=== PATIENT | female | born 1930 | race Caucasian/White ===

== ENCOUNTER 2016-08-12 18:32 | Emergency (ER) | payer OTHER, MEDICARE ==
[~2016-08-12] VITALS: Ht 142.2 cm; Wt 74.4 kg
[~2016-08-12 18:32] MED LIST: ASA81 PO; AZU500 PO; DIAZ2TAB3 PO; FOLI-43 PO; FURO-150 PO; METH2.5T PO; PRED5TAB PO; THYROXIN PO; VALS1TAB72 PO
[2016-08-12 18:46] VITALS: BP_SYST 145
[2016-08-12 19:47] LABS: BASOPHILS % (AUTO) 0.3 % (0.0-2.0); EOSINOPHILS % (AUTO) 0.1 % (0.0-4.0); HEMATOCRIT 30.9 % (36-48); HEMOGLOBIN 9.9 g/dL (12.0-16.0); LYMPHOCYTES # (AUTO) 0.7 K/uL (1.0-5.5); LYMPHOCYTES % (AUTO) 6.5 % (20.5-51.5); MEAN CORPUSCULAR HEMOGLOBIN 32 pg (27-31); MEAN CORPUSCULAR HGB CONC 32 % (32-36); MEAN CORPUSCULAR VOLUME 100 fL (79.0-98.0); MONOCYTES # (AUTO) 0.5 K/uL (0.0-1.0); MONOCYTES % (AUTO) 5.3 % (1.7-9.3); NEUTROPHILS # (AUTO) 9.2 K/uL (1.8-7.7); NEUTROPHILS % (AUTO) 87.8 % (40.0-70.0); PLATELET COUNT (AUTO) 314 K/uL (130-430); RED BLOOD CELL COUNT(AUTO) 3.07 MIL/uL (4.2-6.2); RED CELL DISTRIBUTION WIDTH 13.1 % (9.0-15.0); WHITE BLOOD COUNT (AUTO) 10.4 K/uL (4.8-10.8)
[2016-08-12 19:51] LABS: ANION GAP 6 (5-15); CALCIUM 9.5 mg/dL (8.4-11.0); CHLORIDE 96 mmol/L (98-107); GLUCOSE 106 mg/dL (70-99); POTASSIUM 4.5 mmol/L (3.5-5.1); SODIUM SERUM 128 mmol/L (136-145); UREA NITROGEN, BLOOD 19 mg/dL (8-21)
[2016-08-12 19:53] LABS: INR 0.9 (0.8-1.2); PROTHROMBIN TIME 10.3 SECS (9.5-12.5)
[2016-08-12 19:56] LABS: ALANINE AMINOTRANSFERASE 19 U/L (12-78); ALBUMIN 3.7 g/dL (3.4-4.8); ASPARTATE AMINOTRANSFERASE 23 U/L (10-37); TOTAL BILIRUBIN 0.6 mg/dL (0.0-1.0); TOTAL PROTEIN, SERUM 7.1 g/dL (6.4-8.3)
[2016-08-12] MEDS ORDERED: ASPIRIN 81 MG TAB.CHEW PO ONE (20:00)
[2016-08-12] MEDS ORDERED: LIDOCAINE VISCOUS 2%, 15 ML UDC MM ONE (20:45)
[2016-08-12] MEDS ORDERED: PANTOPRAZOLE SODIUM 40 MG/VIAL (PROTONIX) IVP ONE (20:45)
[2016-08-12] MEDS ORDERED: NACL 0.9% 1,000 ML IV ONE (20:45)
[2016-08-12] MEDS ORDERED: BELLADONNA ALKALOIDS/PHENOBARB 5 ML UDC PO ONE (20:45)
[2016-08-12] MEDS ORDERED: MAG-AL HYDROX/SIMETH 30 ML UDC PO ONE (20:45)
[2016-08-12 20:49] LABS: BILIRUBIN,URINE NEGATIVE (NEGATIVE); BLOOD, URINE NEGATIVE (NEGATIVE); CLARITY/URINE CLEAR (CLEAR); COLOR,URINE YELLOW (YELLOW); GLUCOSE,URINE NEGATIVE (NEGATIVE); KETONES,URINE NEGATIVE (NEGATIVE); NITRITE, URINE NEGATIVE (NEGATIVE); PH,URINE 5.5 (5.0-8.0); PROTEIN URINE NEGATIVE (NEGATIVE); UROBILINOGEN,URINE 0.2 (0.2-1.0)
[2016-08-12 21:02] LABS: LEUKOCYTE ESTERASE ,URINE TRACE (NEGATIVE)
[2016-08-12 21:05] LABS: BACTERIA,URINE FEW /HPF (None Seen); MUCUS,URINE None Seen /LPF (None Seen); RBC,URINE NONE SEEN /HPF (0-3)
[2016-08-12] MEDS ORDERED: PANTOPRAZOLE SODIUM 40 MG/VIAL (PROTONIX) ONE (21:12)
[2016-08-12] MEDS ORDERED: CLIN-77 PO (21:19)
[2016-08-12] MEDS ORDERED: FOLI0.8C PO (21:21)
[2016-08-12] MEDS ORDERED: DIAZ5TAB4 PO (21:22)
[2016-08-12] MEDS ORDERED: RANI150T8 PO (21:30)
[2016-08-12] MEDS ORDERED: ASCO500T20 PO (21:30)
[2016-08-12] MEDS ORDERED: LEVOFLOXACIN 500 MG/D5W 100 ML IV ONE (21:30)
[2016-08-12] MEDS ORDERED: OMEG1CAP48 PO (21:33)
[2016-08-12] MEDS ORDERED: THYROXINE PO (22:04)
[2016-08-12] MEDS ORDERED: IRON-11 PO (22:15)
[2016-08-12 22:21] VITALS: BP_SYST 134
== END 2016-08-12 22:21 | disposition home or self-care (01) ==
LOC: SED 18:32
DX: K29.70 Gastritis, unspecified, without bleeding (principal); D64.9 Anemia, unspecified; N39.0 Urinary tract infection, site not specified; R03.0 Elevated blood-pressure reading, without diagnosis of hypertension; E87.1 Hypo-osmolality and hyponatremia; Z88.5 Allergy status to narcotic agent; M06.9 Rheumatoid arthritis, unspecified; Z96.643 Presence of artificial hip joint, bilateral; Z96.612 Presence of left artificial shoulder joint; Z96.611 Presence of right artificial shoulder joint; Z79.899 Other long term (current) drug therapy
CPT/HCPCS: 36415; 71010; 80053; 81000; 83605; 84484; 85025; 85610; 85730; 87040; 93005; 96361; 96365; 96375; 99285; C9113; J1956; J2001; J7030

== ENCOUNTER 2017-03-07 06:57 | Day surgery (SDC) | payer OTHER, MEDICARE ==
[~2017-03-07 06:57] MED LIST changes: +ASCO500T20 PO; -AZU500 PO; +CLIN-77 PO; -DIAZ2TAB3 PO; +DIAZ5TAB4 PO; -FOLI-43 PO; +FOLI0.8C PO; +IRON-11 PO; +OMEG1CAP48 PO; +RANI150T8 PO; -THYROXIN PO; +THYROXINE PO
[2017-03-07] MEDS: MIDAZOLAM HCL 5 MG/5 ML VIAL ONE ×2 (08:47→08:53)
[2017-03-07] MEDS: fentaNYL CITRATE/PF 100 MCG/2 ML AMP ONE ×3 (08:49→08:58)
[2017-03-07 13:47] VITALS: BP_SYST 155
== END 2017-03-07 10:05 | disposition home or self-care (01) ==
LOC: SDS 06:57 → SMU 07:24 → SDS 10:05
PROVIDERS: ATTEND Internal Medicine
DX: Z09 Encounter for follow-up examination after completed treatment for conditions other than malignant neoplasm (principal); K57.30 Diverticulosis of large intestine without perforation or abscess without bleeding; K64.8 Other hemorrhoids; Z86.010 Personal history of colon polyps; I10 Essential (primary) hypertension; E07.9 Disorder of thyroid, unspecified; K21.9 Gastro-esophageal reflux disease without esophagitis; Z79.1 Long term (current) use of non-steroidal anti-inflammatories (NSAID); Z79.899 Other long term (current) drug therapy; Z90.710 Acquired absence of both cervix and uterus; Z90.49 Acquired absence of other specified parts of digestive tract; Z96.659 Presence of unspecified artificial knee joint; Z96.649 Presence of unspecified artificial hip joint; Z88.5 Allergy status to narcotic agent; Z87.891 Personal history of nicotine dependence
CPT/HCPCS: 45378; J2250; J3010; J7030

== ENCOUNTER 2017-07-19 20:34 | Inpatient (IN) | payer OTHER, MEDICARE ==
[~2017-07-19] VITALS: Ht 142.2 cm; Wt 69.9 kg
[2017-07-19 20:34] VITALS: BP_SYST 138
[2017-07-19] MEDS ORDERED: MAGNESIUM SULFATE 50 ML IV ONE (20:45)
[2017-07-19] MEDS ORDERED: IPRATROPIUM/ALBUTEROL SULFATE 3 ML AMPUL.NEB INH ONE (20:45)
[2017-07-19 21:53] LABS: ANION GAP 6 (5-15); CHLORIDE 98 mmol/L (98-107); POTASSIUM 4.7 mmol/L (3.5-5.1); SODIUM SERUM 132 mmol/L (136-145)
[2017-07-19 21:54] LABS: ALANINE AMINOTRANSFERASE 24 U/L (12-78); ASPARTATE AMINOTRANSFERASE 48 U/L (10-37); CALCIUM 9.3 mg/dL (8.4-11.0); CREATININE 1.34 mg/dL (0.55-1.30); GLUCOSE 113 mg/dL (70-99); TOTAL BILIRUBIN 0.5 mg/dL (0.0-1.0); UREA NITROGEN, BLOOD 37 mg/dL (8-21)
[2017-07-19 21:55] LABS: ALBUMIN 3.5 g/dL (3.4-4.8)
[2017-07-19 22:00] LABS: BASOPHILS % (AUTO) 0.1 % (0.0-2.0); HEMATOCRIT 30.8 % (36-48); HEMOGLOBIN 10.3 g/dL (12.0-16.0); LYMPHOCYTES # (AUTO) 1.1 K/uL (1.0-5.5); LYMPHOCYTES % (AUTO) 10.8 % (20.5-51.5); MEAN CORPUSCULAR HEMOGLOBIN 33 pg (27-31); MEAN CORPUSCULAR HGB CONC 33 % (32-36); MEAN CORPUSCULAR VOLUME 99 fL (79.0-98.0); MONOCYTES # (AUTO) 0.8 K/uL (0.0-1.0); MONOCYTES % (AUTO) 8.6 % (1.7-9.3); NEUTROPHILS # (AUTO) 7.9 K/uL (1.8-7.7); NEUTROPHILS % (AUTO) 80.5 % (40.0-70.0); PLATELET COUNT (AUTO) 241 K/uL (130-430); RED BLOOD CELL COUNT(AUTO) 3.12 MIL/uL (4.2-6.2); RED CELL DISTRIBUTION WIDTH 14.9 % (9.0-15.0); WHITE BLOOD COUNT (AUTO) 9.8 K/uL (4.8-10.8)
[2017-07-19] MEDS ORDERED: CALC-1124 PO (22:06)
[2017-07-19] MEDS ORDERED: VALS80TA2 PO (22:06)
[2017-07-19] MEDS ORDERED: LEVO125T PO (22:06)
[2017-07-19] MEDS ORDERED: AZU500 PO (22:06)
[2017-07-19] MEDS ORDERED: OMEP40CA33 PO (22:06)
[2017-07-19] MEDS ORDERED: CARV3.1246 PO (22:06)
[2017-07-19] MEDS ORDERED: BISA-79 PO (22:06)
[2017-07-19] MEDS ORDERED: PLA200 PO (22:06)
[2017-07-19] MEDS ORDERED: ACET650T7 PO (22:06)
[2017-07-19] MEDS ORDERED: PIPERACILLIN/TAZOBACTAM 3.375 GM/VIAL (ZOSYN) IV ONE (22:11)
[2017-07-19] MEDS ORDERED: PIPERACILLIN/TAZO 3.375 GM in NS 50 ML IV ONE (22:15)
[2017-07-19] MEDS ORDERED: ASPIRIN 81 MG TAB.CHEW PO ONE (22:15)
[2017-07-19 22:38] LABS: BILIRUBIN,URINE NEGATIVE (NEGATIVE); BLOOD, URINE NEGATIVE (NEGATIVE); CLARITY/URINE CLEAR (CLEAR); COLOR,URINE YELLOW (YELLOW); GLUCOSE,URINE NEGATIVE (NEGATIVE); KETONES,URINE TRACE (NEGATIVE); LEUKOCYTE ESTERASE ,URINE NEGATIVE (NEGATIVE); NITRITE, URINE NEGATIVE (NEGATIVE); PROTEIN URINE TRACE (NEGATIVE); UROBILINOGEN,URINE 0.2 (0.2-1.0)
[2017-07-19 22:58] LABS: BACTERIA,URINE MODERATE /HPF (None Seen); RBC,URINE 0-3 /HPF (0-3); WBC,URINE 0-3 /HPF (0-3)
[2017-07-19 23:14] VITALS: BP_SYST 104
[2017-07-19 23:16] LABS: PROTHROMBIN TIME 10.3 SECS (9.5-12.5)
[2017-07-19 23:34] VITALS: BP_SYST 138
[2017-07-20] MEDS: NACL 0.9% 1,000 ML IV SCH ×2 (00:08→12:54)
[2017-07-20] MEDS ORDERED: PIPERACILLIN/TAZOBACTAM 3.375 GM/VIAL (ZOSYN) IV ONE (00:38)
[2017-07-20] MEDS: IPRATROPIUM/ALBUTEROL SULFATE 3 ML AMPUL.NEB INH SCH ×4 (01:53→19:50)
[2017-07-20] MEDS: PIPERACILLIN/TAZO 3.375 GM in NS 50 ML IV SCH ×3 (05:03→17:51)
[2017-07-20 07:09] LABS: ANION GAP 7 (5-15); CALCIUM 8.5 mg/dL (8.4-11.0); CHLORIDE 97 mmol/L (98-107); GLUCOSE 97 mg/dL (70-99); POTASSIUM 3.8 mmol/L (3.5-5.1); SODIUM SERUM 132 mmol/L (136-145); UREA NITROGEN, BLOOD 39 mg/dL (8-21)
[2017-07-20 07:11] LABS: EOSINOPHILS % (AUTO) 0.3 % (0.0-4.0); HEMATOCRIT 28.1 % (36-48); HEMOGLOBIN 9.3 g/dL (12.0-16.0); MEAN CORPUSCULAR HEMOGLOBIN 32 pg (27-31); MEAN CORPUSCULAR HGB CONC 33 % (32-36); MEAN CORPUSCULAR VOLUME 98 fL (79.0-98.0); MONOCYTES # (AUTO) 0.8 K/uL (0.0-1.0); MONOCYTES % (AUTO) 11.8 % (1.7-9.3); NEUTROPHILS # (AUTO) 5.1 K/uL (1.8-7.7); NEUTROPHILS % (AUTO) 73.9 % (40.0-70.0); PLATELET COUNT (AUTO) 218 K/uL (130-430); RED BLOOD CELL COUNT(AUTO) 2.86 MIL/uL (4.2-6.2); RED CELL DISTRIBUTION WIDTH 14.8 % (9.0-15.0); WHITE BLOOD COUNT (AUTO) 6.9 K/uL (4.8-10.8)
[2017-07-20 08:33] VITALS: BP_SYST 120
[2017-07-20] MEDS: HYDROXYCHLOROQUINE SULFATE 200 MG TABLET PO SCH (08:58)
[2017-07-20] MEDS: BISACODYL 5 MG TABLET.DR (DULCOLAX) PO SCH (08:58)
[2017-07-20] MEDS: ASPIRIN 81 MG TAB.CHEW PO SCH (08:58)
[2017-07-20] MEDS: CARVEDILOL 3.125 MG TABLET (COREG) PO SCH ×2 (08:58→22:08)
[2017-07-20] MEDS ORDERED: VALSARTAN 80 MG TABLET (DIOVAN) PO SCH (09:00)
[2017-07-20] MEDS: sulfASALAZINE 500 MG TABLET (AZULFIDINE) PO SCH ×4 (09:30→22:08)
[2017-07-20] MEDS: guaiFENesin 200 MG/10 ML UDC PO PRN ×2 (11:10→16:28)
[2017-07-20] MEDS ORDERED: VALS1TAB2 PO (11:47)
[2017-07-20] MEDS ORDERED: VALSARTAN 80 MG TABLET (DIOVAN) PO ONE (12:00)
[2017-07-20 12:36] VITALS: BP_SYST 106
[2017-07-20] MEDS: methylPREDNISolone SOD SUCC 40 MG/ML VIAL IVP SCH ×2 (15:30→22:08)
[2017-07-20] MEDS ORDERED: ENOXAPARIN SODIUM 40 MG/0.4 ML SYRINGE SUBCUT ONE (15:45)
[2017-07-20] MEDS ORDERED: methylPREDNISolone SOD SUCC 40 MG/ML VIAL IVP ONE (15:45)
[2017-07-20 16:10] VITALS: BP_SYST 105
[2017-07-20] MEDS: AZITHROMYCIN 500 MG in NS 250 ML IV SCH (16:28)
[2017-07-20 20:00] VITALS: BP_SYST 117
[2017-07-21] MEDS: PIPERACILLIN/TAZO 3.375 GM in NS 50 ML IV SCH ×4 (00:15→23:52)
[2017-07-21] MEDS: guaiFENesin 200 MG/10 ML UDC PO PRN ×3 (00:16→21:36)
[2017-07-21 00:17] VITALS: BP_SYST 137
[2017-07-21] MEDS: IPRATROPIUM/ALBUTEROL SULFATE 3 ML AMPUL.NEB INH SCH ×4 (01:01→20:40)
[2017-07-21] MEDS: LEVOTHYROXINE SODIUM 0.15 MG TABLET PO SCH (06:06)
[2017-07-21 06:52] LABS: BASOPHILS % (AUTO) 0.1 % (0.0-2.0); HEMATOCRIT 30.3 % (36-48); HEMOGLOBIN 9.6 g/dL (12.0-16.0); LYMPHOCYTES # (AUTO) 0.7 K/uL (1.0-5.5); LYMPHOCYTES % (AUTO) 10.6 % (20.5-51.5); MEAN CORPUSCULAR HEMOGLOBIN 32 pg (27-31); MEAN CORPUSCULAR HGB CONC 32 % (32-36); MEAN CORPUSCULAR VOLUME 100 fL (79.0-98.0); MONOCYTES # (AUTO) 0.2 K/uL (0.0-1.0); MONOCYTES % (AUTO) 2.8 % (1.7-9.3); NEUTROPHILS # (AUTO) 5.4 K/uL (1.8-7.7); NEUTROPHILS % (AUTO) 86.5 % (40.0-70.0); PLATELET COUNT (AUTO) 283 K/uL (130-430); RED BLOOD CELL COUNT(AUTO) 3.04 MIL/uL (4.2-6.2); RED CELL DISTRIBUTION WIDTH 15.3 % (9.0-15.0); WHITE BLOOD COUNT (AUTO) 6.4 K/uL (4.8-10.8)
[2017-07-21 07:08] LABS: ALANINE AMINOTRANSFERASE 24 U/L (12-78); ALBUMIN 3.1 g/dL (3.4-4.8); ANION GAP 10 (5-15); ASPARTATE AMINOTRANSFERASE 44 U/L (10-37); CALCIUM 8.7 mg/dL (8.4-11.0); CHLORIDE 100 mmol/L (98-107); CREATININE 1.21 mg/dL (0.55-1.30); GLUCOSE 123 mg/dL (70-99); POTASSIUM 4.4 mmol/L (3.5-5.1); SODIUM SERUM 135 mmol/L (136-145); TOTAL BILIRUBIN 0.4 mg/dL (0.0-1.0); UREA NITROGEN, BLOOD 33 mg/dL (8-21)
[2017-07-21] MEDS: NACL 0.9% 1,000 ML IV SCH (08:07)
[2017-07-21 08:20] VITALS: BP_SYST 144
[2017-07-21] MEDS: ENOXAPARIN SODIUM 40 MG/0.4 ML SYRINGE SUBCUT SCH (09:50)
[2017-07-21] MEDS: methylPREDNISolone SOD SUCC 40 MG/ML VIAL IVP SCH ×2 (09:50→21:35)
[2017-07-21] MEDS: ASPIRIN 81 MG TAB.CHEW PO SCH (09:50)
[2017-07-21] MEDS: sulfASALAZINE 500 MG TABLET (AZULFIDINE) PO SCH ×3 (09:50→21:36)
[2017-07-21] MEDS: HYDROXYCHLOROQUINE SULFATE 200 MG TABLET PO SCH (09:50)
[2017-07-21] MEDS: BISACODYL 5 MG TABLET.DR (DULCOLAX) PO SCH (09:51)
[2017-07-21] MEDS: VALSARTAN 80 MG TABLET (DIOVAN) PO SCH (09:51)
[2017-07-21] MEDS: CARVEDILOL 3.125 MG TABLET (COREG) PO SCH ×2 (09:52→21:36)
[2017-07-21 11:56] VITALS: BP_SYST 126
[2017-07-21] MEDS: AZITHROMYCIN 500 MG in NS 250 ML IV SCH (15:18)
[2017-07-21 16:09] VITALS: BP_SYST 131
[2017-07-21] MEDS ORDERED: BENZOCAINE/MENTHOL 1 EACH LOZENGE MM PRN (17:30)
[2017-07-21 20:32] VITALS: BP_SYST 134
[2017-07-22 00:34] VITALS: BP_SYST 164
[2017-07-22] MEDS: IPRATROPIUM/ALBUTEROL SULFATE 3 ML AMPUL.NEB INH SCH ×4 (01:30→19:40)
[2017-07-22] MEDS: LEVOTHYROXINE SODIUM 0.15 MG TABLET PO SCH (06:08)
[2017-07-22] MEDS: PIPERACILLIN/TAZO 3.375 GM in NS 50 ML IV SCH ×4 (06:08→23:09)
[2017-07-22 06:41] LABS: BASOPHILS % (AUTO) 0.3 % (0.0-2.0); EOSINOPHILS % (AUTO) 0.1 % (0.0-4.0); HEMATOCRIT 28.3 % (36-48); HEMOGLOBIN 9.2 g/dL (12.0-16.0); LYMPHOCYTES # (AUTO) 1.3 K/uL (1.0-5.5); LYMPHOCYTES % (AUTO) 17.4 % (20.5-51.5); MEAN CORPUSCULAR HEMOGLOBIN 32 pg (27-31); MEAN CORPUSCULAR HGB CONC 33 % (32-36); MEAN CORPUSCULAR VOLUME 99 fL (79.0-98.0); MONOCYTES # (AUTO) 0.1 K/uL (0.0-1.0); MONOCYTES % (AUTO) 1.8 % (1.7-9.3); NEUTROPHILS # (AUTO) 6.3 K/uL (1.8-7.7); NEUTROPHILS % (AUTO) 80.4 % (40.0-70.0); PLATELET COUNT (AUTO) 308 K/uL (130-430); RED BLOOD CELL COUNT(AUTO) 2.87 MIL/uL (4.2-6.2); RED CELL DISTRIBUTION WIDTH 14.9 % (9.0-15.0); WHITE BLOOD COUNT (AUTO) 7.7 K/uL (4.8-10.8)
[2017-07-22 06:45] LABS: ANION GAP 8 (5-15); CALCIUM 8.9 mg/dL (8.4-11.0); CHLORIDE 103 mmol/L (98-107); CREATININE 1.05 mg/dL (0.55-1.30); GLUCOSE 94 mg/dL (70-99); SODIUM SERUM 137 mmol/L (136-145); UREA NITROGEN, BLOOD 35 mg/dL (8-21)
[2017-07-22 07:55] VITALS: BP_SYST 163
[2017-07-22] MEDS: ENOXAPARIN SODIUM 40 MG/0.4 ML SYRINGE SUBCUT SCH (09:30)
[2017-07-22] MEDS: methylPREDNISolone SOD SUCC 40 MG/ML VIAL IVP SCH ×2 (09:30→20:58)
[2017-07-22] MEDS: HYDROXYCHLOROQUINE SULFATE 200 MG TABLET PO SCH (09:31)
[2017-07-22] MEDS: ASPIRIN 81 MG TAB.CHEW PO SCH (09:31)
[2017-07-22] MEDS: sulfASALAZINE 500 MG TABLET (AZULFIDINE) PO SCH ×4 (09:31→20:58)
[2017-07-22] MEDS: BISACODYL 5 MG TABLET.DR (DULCOLAX) PO SCH (09:31)
[2017-07-22] MEDS: VALSARTAN 80 MG TABLET (DIOVAN) PO SCH (09:31)
[2017-07-22] MEDS: CARVEDILOL 3.125 MG TABLET (COREG) PO SCH ×2 (09:32→20:58)
[2017-07-22] MEDS: guaiFENesin 200 MG/10 ML UDC PO PRN ×2 (09:42→13:55)
[2017-07-22] MEDS ORDERED: hydrALAZINE HCL 20 MG/ML VIAL IVP PRN (11:00)
[2017-07-22] MEDS ORDERED: HYDROCHLOROTHIAZIDE 12.5 MG CAPSULE (HCTZ) PO ONE (11:45)
[2017-07-22 11:54] VITALS: BP_SYST 123
[2017-07-22] MEDS: AZITHROMYCIN 500 MG in NS 250 ML IV SCH (16:01)
[2017-07-22 16:06] VITALS: BP_SYST 140
[2017-07-22 17:25] VITALS: BP_SYST 140
[2017-07-22 20:00] VITALS: BP_SYST 122
[2017-07-22] MEDS ORDERED: ZOLPIDEM TARTRATE 5 MG TABLET PO ONE (21:00)
[2017-07-23 00:42] VITALS: BP_SYST 157
[2017-07-23] MEDS: PIPERACILLIN/TAZO 3.375 GM in NS 50 ML IV SCH ×2 (05:03→11:33)
[2017-07-23] MEDS: LEVOTHYROXINE SODIUM 0.15 MG TABLET PO SCH (06:17)
[2017-07-23] MEDS: IPRATROPIUM/ALBUTEROL SULFATE 3 ML AMPUL.NEB INH SCH ×2 (06:53)
[2017-07-23 06:57] LABS: BASOPHILS % (AUTO) 0.2 % (0.0-2.0); EOSINOPHILS % (AUTO) 0.1 % (0.0-4.0); HEMATOCRIT 25.8 % (36-48); HEMOGLOBIN 8.4 g/dL (12.0-16.0); LYMPHOCYTES # (AUTO) 0.6 K/uL (1.0-5.5); MEAN CORPUSCULAR HEMOGLOBIN 32 pg (27-31); MEAN CORPUSCULAR HGB CONC 33 % (32-36); MEAN CORPUSCULAR VOLUME 99 fL (79.0-98.0); MONOCYTES # (AUTO) 0.2 K/uL (0.0-1.0); MONOCYTES % (AUTO) 2.7 % (1.7-9.3); NEUTROPHILS # (AUTO) 5.7 K/uL (1.8-7.7); PLATELET COUNT (AUTO) 283 K/uL (130-430); RED BLOOD CELL COUNT(AUTO) 2.61 MIL/uL (4.2-6.2); RED CELL DISTRIBUTION WIDTH 15.1 % (9.0-15.0); WHITE BLOOD COUNT (AUTO) 6.5 K/uL (4.8-10.8)
[2017-07-23 07:09] LABS: ANION GAP 6 (5-15); CHLORIDE 107 mmol/L (98-107); CREATININE 0.91 mg/dL (0.55-1.30); GLUCOSE 110 mg/dL (70-99); POTASSIUM 4.6 mmol/L (3.5-5.1); SODIUM SERUM 139 mmol/L (136-145); UREA NITROGEN, BLOOD 28 mg/dL (8-21)
[2017-07-23 08:10] VITALS: BP_SYST 124
[2017-07-23] MEDS: methylPREDNISolone SOD SUCC 40 MG/ML VIAL IVP SCH (08:46)
[2017-07-23] MEDS: HYDROXYCHLOROQUINE SULFATE 200 MG TABLET PO SCH (08:47)
[2017-07-23] MEDS: VALSARTAN 80 MG TABLET (DIOVAN) PO SCH (08:47)
[2017-07-23] MEDS: ENOXAPARIN SODIUM 40 MG/0.4 ML SYRINGE SUBCUT SCH (08:47)
[2017-07-23] MEDS: ASPIRIN 81 MG TAB.CHEW PO SCH (08:47)
[2017-07-23] MEDS: BISACODYL 5 MG TABLET.DR (DULCOLAX) PO SCH (08:47)
[2017-07-23] MEDS: sulfASALAZINE 500 MG TABLET (AZULFIDINE) PO SCH (08:47)
[2017-07-23] MEDS: CARVEDILOL 3.125 MG TABLET (COREG) PO SCH (08:47)
[2017-07-23] MEDS ORDERED: HYDROCHLOROTHIAZIDE PO SCH (09:00)
[2017-07-23] MEDS ORDERED: [UNRECOGNIZED DRUG - OTHER] PO SCH (09:00)
[2017-07-23] MEDS ORDERED: VALSARTAN PO SCH (09:00)
[2017-07-23] MEDS ORDERED: HYDROCHLOROTHIAZIDE 12.5 MG CAPSULE (HCTZ) PO SCH (09:00)
[2017-07-23 09:43] VITALS: BP_SYST 114
[2017-07-23 11:29] VITALS: BP_SYST 114
[2017-07-23] MEDS ORDERED: PREDNISONE 20 MG TABLET PO SCH (21:00)
== END 2017-07-23 12:50 | DRG 177 ==
LOC: SED 20:34 → STU 22:43 → SMU 07-23 09:19
PROVIDERS: ADMIT General Practice; ATTEND General Practice
DX: J69.0 Pneumonitis due to inhalation of food and vomit (principal); N17.0 Acute kidney failure with tubular necrosis; N39.0 Urinary tract infection, site not specified; N18.4 Chronic kidney disease, stage 4 (severe); E87.1 Hypo-osmolality and hyponatremia; J44.0 Chronic obstructive pulmonary disease with (acute) lower respiratory infection; J44.1 Chronic obstructive pulmonary disease with (acute) exacerbation; D63.8 Anemia in other chronic diseases classified elsewhere; E03.9 Hypothyroidism, unspecified; E86.0 Dehydration; E66.8 Other obesity; Z68.34 Body mass index [BMI] 34.0-34.9, adult; M06.9 Rheumatoid arthritis, unspecified; Z91.048 Other nonmedicinal substance allergy status; K21.9 Gastro-esophageal reflux disease without esophagitis; R26.9 Unspecified abnormalities of gait and mobility; F41.9 Anxiety disorder, unspecified; I12.9 Hypertensive chronic kidney disease with stage 1 through stage 4 chronic kidney disease, or unspecified chronic kidney disease; I44.7 Left bundle-branch block, unspecified; J20.9 Acute bronchitis, unspecified; Z96.612 Presence of left artificial shoulder joint; Z96.643 Presence of artificial hip joint, bilateral; Z90.710 Acquired absence of both cervix and uterus; Z90.49 Acquired absence of other specified parts of digestive tract; Z87.891 Personal history of nicotine dependence; Z96.653 Presence of artificial knee joint, bilateral
CPT/HCPCS: 36415; 36600; 71045; 71250-TC; 80048; 80053; 81000-TC; 82803-TC; 83605; 83735-TC; 83880; 84484; 85025; 85610-TC; 85730-TC; 87040-TC; 87086; 93005; 93306; 94640; 94760; 96365; 96367; 97110-GP; 97116-GP; 97530-GP; 99285; J0456; J1030; J1650; J2543; J3475; J7030; J7050; J8610

== ENCOUNTER 2017-08-23 12:39 | Emergency (ER) | payer OTHER, MEDICARE ==
[~2017-08-23] VITALS: Ht 180.3 cm; Wt 73.5 kg
[~2017-08-23 12:39] MED LIST changes: +ACET650T7 PO; +AZU500 PO; +BISA-79 PO; +CALC-1124 PO; +CARV3.1246 PO; -CLIN-77 PO; -FURO-150 PO; +LEVO125T PO; +PLA200 PO; -RANI150T8 PO; -THYROXINE PO; +VALS1TAB2 PO; -VALS1TAB72 PO
[2017-08-23 12:45] VITALS: BP_SYST 129
[2017-08-23] MEDS: ONDANSETRON HCL 4 MG/2 ML VIAL IVP ONE ×2 (15:08→17:24)
[2017-08-23] MEDS ORDERED: MORPHINE 4 MG/ML INJ. SYRINGE ONE (15:10)
[2017-08-23] MEDS: MORPHINE 2 MG/ML INJ. SYRINGE IVP ONE (15:12)
[2017-08-23 15:22] LABS: BILIRUBIN,URINE NEGATIVE (NEGATIVE); BLOOD, URINE NEGATIVE (NEGATIVE); CLARITY/URINE CLEAR (CLEAR); COLOR,URINE YELLOW (YELLOW); GLUCOSE,URINE NEGATIVE (NEGATIVE); KETONES,URINE NEGATIVE (NEGATIVE); LEUKOCYTE ESTERASE ,URINE NEGATIVE (NEGATIVE); NITRITE, URINE NEGATIVE (NEGATIVE); PH,URINE 5.5 (5.0-8.0); PROTEIN URINE NEGATIVE (NEGATIVE); UROBILINOGEN,URINE 0.2 (0.2-1.0)
[2017-08-23 15:26] LABS: BASOPHILS # (AUTO) 0.1 K/uL (0.0-0.2); BASOPHILS % (AUTO) 0.6 % (0.0-2.0); EOSINOPHILS # (AUTO) 0.1 K/uL (0.0-0.4); EOSINOPHILS % (AUTO) 0.7 % (0.0-4.0); HEMOGLOBIN 9.8 g/dL (12.0-16.0); LYMPHOCYTES % (AUTO) 11.5 % (20.5-51.5); MEAN CORPUSCULAR HEMOGLOBIN 33 pg (27-31); MEAN CORPUSCULAR HGB CONC 33 % (32-36); MEAN CORPUSCULAR VOLUME 100 fL (79.0-98.0); MONOCYTES # (AUTO) 0.9 K/uL (0.0-1.0); MONOCYTES % (AUTO) 10.6 % (1.7-9.3); NEUTROPHILS # (AUTO) 6.8 K/uL (1.8-7.7); NEUTROPHILS % (AUTO) 76.6 % (40.0-70.0); PLATELET COUNT (AUTO) 351 K/uL (130-430); RED BLOOD CELL COUNT(AUTO) 3.01 MIL/uL (4.2-6.2); RED CELL DISTRIBUTION WIDTH 15.7 % (9.0-15.0); WHITE BLOOD COUNT (AUTO) 8.9 K/uL (4.8-10.8)
[2017-08-23 15:39] LABS: ANION GAP 5 (5-15); CALCIUM 9.3 mg/dL (8.4-11.0); CHLORIDE 100 mmol/L (98-107); CREATININE 0.88 mg/dL (0.55-1.30); GLUCOSE 105 mg/dL (70-99); POTASSIUM 4.8 mmol/L (3.5-5.1); SODIUM SERUM 136 mmol/L (136-145); UREA NITROGEN, BLOOD 23 mg/dL (8-21)
[2017-08-23 15:47] LABS: ALANINE AMINOTRANSFERASE 16 U/L (12-78); ALBUMIN 3.5 g/dL (3.4-4.8); ASPARTATE AMINOTRANSFERASE 18 U/L (10-37); LIPASE 216 U/L (73-393); TOTAL BILIRUBIN 0.3 mg/dL (0.0-1.0)
[2017-08-23 16:51] LABS: INR 0.9 (0.8-1.2); PROTHROMBIN TIME 9.6 SECS (9.5-12.5)
[2017-08-23] MEDS: MORPHINE 4 MG/ML INJ. SYRINGE IVP ONE (17:25)
[2017-08-23 18:41] VITALS: BP_SYST 126
== END 2017-08-23 18:41 | disposition home or self-care (01) ==
LOC: SED 12:39
DX: M54.6 Pain in thoracic spine (principal); I10 Essential (primary) hypertension; M06.9 Rheumatoid arthritis, unspecified; M19.90 Unspecified osteoarthritis, unspecified site; Z91.048 Other nonmedicinal substance allergy status; Z88.5 Allergy status to narcotic agent; Z90.49 Acquired absence of other specified parts of digestive tract; Z90.89 Acquired absence of other organs; Z86.2 Personal history of diseases of the blood and blood-forming organs and certain disorders involving the immune mechanism; Z79.899 Other long term (current) drug therapy
CPT/HCPCS: 36415; 72128; 74176; 80053; 81003; 83690; 84484; 85025; 85610; 85730; 93005; 96374; 96375; 96376; 99285; J2270; J2405

== ENCOUNTER 2017-09-08 00:39 | Inpatient (IN) | payer OTHER, MEDICARE ==
[~2017-09-08] VITALS: Ht 162.6 cm; Wt 73.0 kg
[2017-09-08 00:48] VITALS: BP_SYST 155
[2017-09-08] MEDS ORDERED: ACETAMINOPHEN 500 MG TABLET PO ONE (02:30)
[2017-09-08] MEDS ORDERED: MORPHINE 4 MG/ML INJ. SYRINGE IVP ONE (03:00)
[2017-09-08] MEDS ORDERED: ONDANSETRON 4 MG ODT TAB PO ONE (03:15)
[2017-09-08] MEDS ORDERED: NACL 0.9% 1,000 ML IV ONE (03:30)
[2017-09-08] MEDS ORDERED: TERI2.4P SQ (03:43)
[2017-09-08] MEDS ORDERED: ONDANSETRON HCL 4 MG/2 ML VIAL IVP PRN (04:15)
[2017-09-08 04:19] LABS: BILIRUBIN,URINE NEGATIVE (NEGATIVE); BLOOD, URINE NEGATIVE (NEGATIVE); CLARITY/URINE SL HAZY (CLEAR); COLOR,URINE YELLOW (YELLOW); GLUCOSE,URINE NEGATIVE (NEGATIVE); KETONES,URINE TRACE (NEGATIVE); LEUKOCYTE ESTERASE ,URINE TRACE (NEGATIVE); NITRITE, URINE NEGATIVE (NEGATIVE); PH,URINE 6.5 (5.0-8.0); PROTEIN URINE NEGATIVE (NEGATIVE); UROBILINOGEN,URINE 0.2 (0.2-1.0)
[2017-09-08 04:24] VITALS: BP_SYST 137
[2017-09-08 04:49] LABS: BACTERIA,URINE FEW /HPF (None Seen); CALCIUM OXALATE CRYSTALS,UR 0-10 /HPF (None Seen); RBC,URINE 0-3 /HPF (0-3); URINE AMORPHOUS URATE 2+ /HPF (None Seen)
[2017-09-08 05:29] LABS: BASOPHILS # (AUTO) 0.1 K/uL (0.0-0.2); BASOPHILS % (AUTO) 0.8 % (0.0-2.0); EOSINOPHILS # (AUTO) 0.1 K/uL (0.0-0.4); EOSINOPHILS % (AUTO) 0.5 % (0.0-4.0); HEMATOCRIT 31.5 % (36-48); HEMOGLOBIN 10.2 g/dL (12.0-16.0); LYMPHOCYTES # (AUTO) 1.3 K/uL (1.0-5.5); LYMPHOCYTES % (AUTO) 12.2 % (20.5-51.5); MEAN CORPUSCULAR HEMOGLOBIN 32 pg (27-31); MEAN CORPUSCULAR HGB CONC 32 % (32-36); MEAN CORPUSCULAR VOLUME 98 fL (79.0-98.0); MONOCYTES % (AUTO) 9.1 % (1.7-9.3); NEUTROPHILS % (AUTO) 77.4 % (40.0-70.0); PLATELET COUNT (AUTO) 347 K/uL (130-430); RED BLOOD CELL COUNT(AUTO) 3.23 MIL/uL (4.2-6.2); RED CELL DISTRIBUTION WIDTH 14.7 % (9.0-15.0); WHITE BLOOD COUNT (AUTO) 10.5 K/uL (4.8-10.8)
[2017-09-08 05:36] LABS: ANION GAP 8 (5-15); CALCIUM 11.3 mg/dL (8.4-11.0); CHLORIDE 104 mmol/L (98-107); CREATININE 1.09 mg/dL (0.55-1.30); GLUCOSE 80 mg/dL (70-99); POTASSIUM 3.7 mmol/L (3.5-5.1); SODIUM SERUM 140 mmol/L (136-145); UREA NITROGEN, BLOOD 25 mg/dL (8-21)
[2017-09-08 05:46] LABS: ALANINE AMINOTRANSFERASE 15 U/L (12-78); ALBUMIN 3.3 g/dL (3.4-4.8); ASPARTATE AMINOTRANSFERASE 38 U/L (10-37); TOTAL BILIRUBIN 0.3 mg/dL (0.0-1.0)
[2017-09-08 08:05] VITALS: BP_SYST 133
[2017-09-08 12:45] VITALS: BP_SYST 139
[2017-09-08] MEDS ORDERED: ASPIRIN 81 MG TAB.CHEW PO ONE (13:00)
[2017-09-08] MEDS ORDERED: ASCORBIC ACID 500 MG TABLET PO ONE (13:00)
[2017-09-08] MEDS ORDERED: BISACODYL 5 MG TABLET.DR (DULCOLAX) PO ONE (13:00)
[2017-09-08] MEDS ORDERED: LEVOTHYROXINE SODIUM 0.125 MG TABLET PO ONE (13:00)
[2017-09-08] MEDS ORDERED: CARVEDILOL 3.125 MG TABLET (COREG) PO ONE (13:00)
[2017-09-08] MEDS ORDERED: PREDNISONE 5 MG TABLET PO ONE (13:00)
[2017-09-08] MEDS ORDERED: TERIPARATIDE SQ SCH (13:00)
[2017-09-08] MEDS ORDERED: HYDROXYCHLOROQUINE SULFATE 200 MG TABLET PO ONE (13:00)
[2017-09-08] MEDS ORDERED: DOCUSATE SODIUM 250 MG CAPSULE PO ONE (13:15)
[2017-09-08] MEDS ORDERED: traMADol HCL HCL 50 MG TABLET (ULTRAM) PO PRN (13:15)
[2017-09-08] MEDS: MORPHINE 4 MG/ML INJ. SYRINGE IVP PRN ×2 (13:32→19:47)
[2017-09-08] MEDS ORDERED: ACETAMINOPHEN 325 MG TABLET PO PRN (13:45)
[2017-09-08] MEDS ORDERED: cefTRIAXone 1 GM in D5W 50 ML IV ONE (14:00)
[2017-09-08] MEDS: sulfASALAZINE 500 MG TABLET (AZULFIDINE) PO SCH ×3 (15:14→20:20)
[2017-09-08] MEDS: FORTEO SUBCUT SCH (15:15)
[2017-09-08 16:00] VITALS: BP_SYST 125
[2017-09-08] MEDS: ONDANSETRON HCL 4 MG/2 ML VIAL IVP PRN (19:47)
[2017-09-08 20:00] VITALS: BP_SYST 116
[2017-09-08] MEDS: DOCUSATE SODIUM 250 MG CAPSULE PO SCH (20:20)
[2017-09-08] MEDS: ASCORBIC ACID 500 MG TABLET PO SCH (20:20)
[2017-09-08] MEDS: CARVEDILOL 3.125 MG TABLET (COREG) PO SCH (20:21)
[2017-09-08] MEDS ORDERED: DIAZEPAM 5 MG TABLET (VALIUM) PO PRN (21:00)
[2017-09-09] MEDS: MORPHINE 4 MG/ML INJ. SYRINGE IVP PRN ×3 (00:21→12:02)
[2017-09-09 01:21] VITALS: BP_SYST 159
[2017-09-09] MEDS: ONDANSETRON HCL 4 MG/2 ML VIAL IVP PRN ×2 (06:03→12:02)
[2017-09-09] MEDS: LEVOTHYROXINE SODIUM 0.15 MG TABLET PO SCH (06:03)
[2017-09-09 06:21] LABS: BASOPHILS # (AUTO) 0.1 K/uL (0.0-0.2); BASOPHILS % (AUTO) 0.7 % (0.0-2.0); EOSINOPHILS # (AUTO) 0.2 K/uL (0.0-0.4); EOSINOPHILS % (AUTO) 2.6 % (0.0-4.0); HEMATOCRIT 31.1 % (36-48); HEMOGLOBIN 10.2 g/dL (12.0-16.0); LYMPHOCYTES # (AUTO) 1.6 K/uL (1.0-5.5); LYMPHOCYTES % (AUTO) 18.9 % (20.5-51.5); MEAN CORPUSCULAR HEMOGLOBIN 32 pg (27-31); MEAN CORPUSCULAR HGB CONC 33 % (32-36); MEAN CORPUSCULAR VOLUME 97 fL (79.0-98.0); MONOCYTES # (AUTO) 0.8 K/uL (0.0-1.0); MONOCYTES % (AUTO) 9.1 % (1.7-9.3); NEUTROPHILS % (AUTO) 68.7 % (40.0-70.0); PLATELET COUNT (AUTO) 347 K/uL (130-430); RED BLOOD CELL COUNT(AUTO) 3.21 MIL/uL (4.2-6.2); RED CELL DISTRIBUTION WIDTH 15.2 % (9.0-15.0); WHITE BLOOD COUNT (AUTO) 8.7 K/uL (4.8-10.8)
[2017-09-09 07:06] LABS: ANION GAP 6 (5-15); CALCIUM 10.1 mg/dL (8.4-11.0); CHLORIDE 103 mmol/L (98-107); CREATININE 0.85 mg/dL (0.55-1.30); FREE T4 (FREE THYROXINE) 0.9 ng/dL (0.6-1.6); GLUCOSE 78 mg/dL (70-99); POTASSIUM 3.7 mmol/L (3.5-5.1); SODIUM SERUM 138 mmol/L (136-145); UREA NITROGEN, BLOOD 25 mg/dL (8-21)
[2017-09-09 07:17] LABS: TOTAL IRON BIND. CAPACITY 195 ug/dL (250-450)
[2017-09-09] MEDS: cefTRIAXone 1 GM in D5W 50 ML IV SCH (08:47)
[2017-09-09 08:48] VITALS: BP_SYST 124
[2017-09-09] MEDS: BISACODYL 5 MG TABLET.DR (DULCOLAX) PO SCH (08:48)
[2017-09-09] MEDS: ASPIRIN 81 MG TAB.CHEW PO SCH (08:48)
[2017-09-09] MEDS: PREDNISONE 5 MG TABLET PO SCH (08:49)
[2017-09-09] MEDS: DOCUSATE SODIUM 250 MG CAPSULE PO SCH ×2 (08:50→20:47)
[2017-09-09] MEDS: HYDROXYCHLOROQUINE SULFATE 200 MG TABLET PO SCH (08:50)
[2017-09-09] MEDS: CARVEDILOL 3.125 MG TABLET (COREG) PO SCH ×2 (08:50→20:48)
[2017-09-09] MEDS: ASCORBIC ACID 500 MG TABLET PO SCH ×2 (08:51→20:47)
[2017-09-09] MEDS: sulfASALAZINE 500 MG TABLET (AZULFIDINE) PO SCH ×4 (11:21→20:47)
[2017-09-09] MEDS: FORTEO SUBCUT SCH (11:21)
[2017-09-09 12:40] VITALS: BP_SYST 100
[2017-09-09 17:05] VITALS: BP_SYST 149
[2017-09-09 20:00] VITALS: BP_SYST 148
[2017-09-09] MEDS: traMADol HCL HCL 50 MG TABLET (ULTRAM) PO PRN (20:47)
[2017-09-10 00:41] VITALS: BP_SYST 158
[2017-09-10] MEDS: traMADol HCL HCL 50 MG TABLET (ULTRAM) PO PRN ×2 (04:30→11:04)
[2017-09-10] MEDS: LEVOTHYROXINE SODIUM 0.15 MG TABLET PO SCH (06:02)
[2017-09-10] MEDS: ASCORBIC ACID 500 MG TABLET PO SCH ×2 (08:33→20:11)
[2017-09-10] MEDS: cefTRIAXone 1 GM in D5W 50 ML IV SCH (08:33)
[2017-09-10] MEDS: ASPIRIN 81 MG TAB.CHEW PO SCH (08:33)
[2017-09-10] MEDS: BISACODYL 5 MG TABLET.DR (DULCOLAX) PO SCH (08:33)
[2017-09-10] MEDS: HYDROXYCHLOROQUINE SULFATE 200 MG TABLET PO SCH (08:35)
[2017-09-10] MEDS: sulfASALAZINE 500 MG TABLET (AZULFIDINE) PO SCH ×4 (08:35→20:10)
[2017-09-10] MEDS: PREDNISONE 5 MG TABLET PO SCH (08:35)
[2017-09-10] MEDS: DOCUSATE SODIUM 250 MG CAPSULE PO SCH ×2 (08:36→20:10)
[2017-09-10] MEDS: CARVEDILOL 3.125 MG TABLET (COREG) PO SCH ×2 (08:39→20:11)
[2017-09-10] MEDS: FORTEO SUBCUT SCH (08:39)
[2017-09-10] MEDS: ONDANSETRON HCL 4 MG/2 ML VIAL IVP PRN ×2 (10:56→17:59)
[2017-09-10 11:38] VITALS: BP_SYST 118
[2017-09-10 12:52] LABS: BASOPHILS # (AUTO) 0.1 K/uL (0.0-0.2); BASOPHILS % (AUTO) 0.6 % (0.0-2.0); EOSINOPHILS # (AUTO) 0.2 K/uL (0.0-0.4); EOSINOPHILS % (AUTO) 2.1 % (0.0-4.0); HEMATOCRIT 31.6 % (36-48); HEMOGLOBIN 10.3 g/dL (12.0-16.0); LYMPHOCYTES # (AUTO) 0.9 K/uL (1.0-5.5); LYMPHOCYTES % (AUTO) 7.7 % (20.5-51.5); MEAN CORPUSCULAR HEMOGLOBIN 32 pg (27-31); MEAN CORPUSCULAR HGB CONC 33 % (32-36); MEAN CORPUSCULAR VOLUME 97 fL (79.0-98.0); MONOCYTES # (AUTO) 0.9 K/uL (0.0-1.0); MONOCYTES % (AUTO) 7.7 % (1.7-9.3); NEUTROPHILS # (AUTO) 9.2 K/uL (1.8-7.7); NEUTROPHILS % (AUTO) 81.9 % (40.0-70.0); PLATELET COUNT (AUTO) 335 K/uL (130-430); RED BLOOD CELL COUNT(AUTO) 3.24 MIL/uL (4.2-6.2); RED CELL DISTRIBUTION WIDTH 15.2 % (9.0-15.0); WHITE BLOOD COUNT (AUTO) 11.3 K/uL (4.8-10.8)
[2017-09-10 13:07] LABS: ANION GAP 4 (5-15); CALCIUM 9.8 mg/dL (8.4-11.0); CHLORIDE 100 mmol/L (98-107); CREATININE 0.81 mg/dL (0.55-1.30); GLUCOSE 91 mg/dL (70-99); POTASSIUM 3.5 mmol/L (3.5-5.1); SODIUM SERUM 134 mmol/L (136-145); UREA NITROGEN, BLOOD 23 mg/dL (8-21)
[2017-09-10 13:11] LABS: ALANINE AMINOTRANSFERASE 17 U/L (12-78); ALBUMIN 2.9 g/dL (3.4-4.8); ASPARTATE AMINOTRANSFERASE 25 U/L (10-37); LIPASE 509 U/L (73-393); TOTAL BILIRUBIN 0.3 mg/dL (0.0-1.0)
[2017-09-10 15:21] VITALS: BP_SYST 132
[2017-09-10 20:00] VITALS: BP_SYST 158
[2017-09-11 00:10] VITALS: BP_SYST 156
[2017-09-11] MEDS: LEVOTHYROXINE SODIUM 0.15 MG TABLET PO SCH (06:01)
[2017-09-11 08:00] VITALS: BP_SYST 121
[2017-09-11] MEDS: DOCUSATE SODIUM 250 MG CAPSULE PO SCH (08:33)
[2017-09-11] MEDS: PREDNISONE 5 MG TABLET PO SCH (08:33)
[2017-09-11] MEDS: ASPIRIN 81 MG TAB.CHEW PO SCH (08:33)
[2017-09-11] MEDS: ASCORBIC ACID 500 MG TABLET PO SCH (08:33)
[2017-09-11] MEDS: BISACODYL 5 MG TABLET.DR (DULCOLAX) PO SCH (08:33)
[2017-09-11] MEDS: HYDROXYCHLOROQUINE SULFATE 200 MG TABLET PO SCH (08:33)
[2017-09-11] MEDS: CARVEDILOL 3.125 MG TABLET (COREG) PO SCH (08:34)
[2017-09-11] MEDS: FORTEO SUBCUT SCH (08:34)
[2017-09-11] MEDS: sulfASALAZINE 500 MG TABLET (AZULFIDINE) PO SCH (08:34)
[2017-09-11 10:40] VITALS: BP_SYST 121
[2017-09-11] MEDS: ONDANSETRON HCL 4 MG/2 ML VIAL IVP PRN (11:27)
[2017-09-11 11:47] VITALS: BP_SYST 97
== END 2017-09-11 12:48 | DRG 546 ==
LOC: SED 00:39 → SMU 04:06 → STU 13:43 → SMU 09-09 14:17
PROVIDERS: ADMIT Internal Medicine; ATTEND Internal Medicine
DX: M06.9 Rheumatoid arthritis, unspecified (principal); N39.0 Urinary tract infection, site not specified; I48.0 Paroxysmal atrial fibrillation; D64.9 Anemia, unspecified; W01.0XXA Fall on same level from slipping, tripping and stumbling without subsequent striking against object, initial encounter; I10 Essential (primary) hypertension; Z96.653 Presence of artificial knee joint, bilateral; Z96.643 Presence of artificial hip joint, bilateral; F17.210 Nicotine dependence, cigarettes, uncomplicated; M81.0 Age-related osteoporosis without current pathological fracture; M47.9 Spondylosis, unspecified; Y93.89 Activity, other specified; Y92.89 Other specified places as the place of occurrence of the external cause; Y99.8 Other external cause status; Z88.5 Allergy status to narcotic agent; Z91.048 Other nonmedicinal substance allergy status; Z79.82 Long term (current) use of aspirin; Z79.899 Other long term (current) drug therapy; Z90.49 Acquired absence of other specified parts of digestive tract; Z90.710 Acquired absence of both cervix and uterus
CPT/HCPCS: 36415; 73521; 74018; 80048; 80053; 81000-TC; 83540-TC; 83550-TC; 83690-TC; 84439; 85025; 87086; 96360; 96372; 97110-GP; 97530-GP; 99285; J0696; J2270; J2405; J7060; J7512; Q0162

== ENCOUNTER 2017-10-18 10:59 | Inpatient (IN) | payer OTHER, MEDICARE ==
[~2017-10-18] VITALS: Ht 149.9 cm; Wt 77.1 kg
[~2017-10-18 10:59] MED LIST changes: +TERI2.4P SQ
[2017-10-18 11:21] VITALS: BP_SYST 157
[2017-10-18] MEDS ORDERED: NS 1000 ML IV.SOLN IV ONE (11:30)
[2017-10-18] MEDS ORDERED: ONDANSETRON HCL 4 MG/2 ML VIAL IVP ONE (11:30)
[2017-10-18 12:05] LABS: BASOPHILS # (AUTO) 0.1 K/uL (0.0-0.2); BASOPHILS % (AUTO) 0.8 % (0.0-2.0); EOSINOPHILS # (AUTO) 0.1 K/uL (0.0-0.4); EOSINOPHILS % (AUTO) 0.7 % (0.0-4.0); HEMATOCRIT 33.4 % (36-48); HEMOGLOBIN 11.2 g/dL (12.0-16.0); LYMPHOCYTES # (AUTO) 0.8 K/uL (1.0-5.5); LYMPHOCYTES % (AUTO) 9.5 % (20.5-51.5); MEAN CORPUSCULAR HEMOGLOBIN 32 pg (27-31); MEAN CORPUSCULAR HGB CONC 33 % (32-36); MEAN CORPUSCULAR VOLUME 97 fL (79.0-98.0); MONOCYTES # (AUTO) 0.9 K/uL (0.0-1.0); NEUTROPHILS # (AUTO) 6.8 K/uL (1.8-7.7); PLATELET COUNT (AUTO) 253 K/uL (130-430); RED BLOOD CELL COUNT(AUTO) 3.46 MIL/uL (4.2-6.2); RED CELL DISTRIBUTION WIDTH 16.4 % (9.0-15.0); WHITE BLOOD COUNT (AUTO) 8.7 K/uL (4.8-10.8)
[2017-10-18 12:23] LABS: ANION GAP 12 (5-15); CALCIUM 9.1 mg/dL (8.4-11.0); CHLORIDE 100 mmol/L (98-107); CREATININE 0.88 mg/dL (0.55-1.30); GLUCOSE 97 mg/dL (70-99); POTASSIUM 4.5 mmol/L (3.5-5.1); SODIUM SERUM 137 mmol/L (136-145); UREA NITROGEN, BLOOD 20 mg/dL (8-21)
[2017-10-18 12:28] LABS: ALANINE AMINOTRANSFERASE 18 U/L (12-78); ALBUMIN 3.9 g/dL (3.4-4.8); ASPARTATE AMINOTRANSFERASE 22 U/L (10-37); TOTAL BILIRUBIN 0.5 mg/dL (0.0-1.0)
[2017-10-18 12:59] LABS: PROTHROMBIN TIME 10.3 SECS (9.5-12.5)
[2017-10-18] MEDS ORDERED: LORazepam 2 MG/ML VIAL IVP ONE (13:15)
[2017-10-18] MEDS ORDERED: LORazepam 2 MG/ML VIAL (FOR ER USE) ONE (13:23)
[2017-10-18] MEDS ORDERED: ASPIRIN 325 MG TABLET PO ONE (13:30)
[2017-10-18] MEDS ORDERED: NITROGLYCERIN 0.4 MG TAB.SUBL SL ONE (13:30)
[2017-10-18] MEDS ORDERED: IOHEXOL 350 mgI/mL, 150 ML INFUS..BTL IV ONE ×2 (13:39→14:01)
[2017-10-18 13:46] LABS: BILIRUBIN,URINE NEGATIVE (NEGATIVE); CLARITY/URINE CLEAR (CLEAR); COLOR,URINE YELLOW (YELLOW); GLUCOSE,URINE NEGATIVE (NEGATIVE); KETONES,URINE 1+ (NEGATIVE); LEUKOCYTE ESTERASE ,URINE TRACE (NEGATIVE); NITRITE, URINE NEGATIVE (NEGATIVE); PROTEIN URINE 1+ (NEGATIVE); UROBILINOGEN,URINE 0.2 (0.2-1.0)
[2017-10-18 13:51] LABS: BLOOD, URINE TRACE (NEGATIVE)
[2017-10-18] MEDS ORDERED: IPRATROPIUM/ALBUTEROL SULFATE 3 ML AMPUL.NEB ONE (14:14)
[2017-10-18] MEDS ORDERED: IPRATROPIUM/ALBUTEROL SULFATE 3 ML AMPUL.NEB INH ONE ×2 (14:15→16:30)
[2017-10-18] MEDS ORDERED: FUROSEMIDE 40 MG/4 ML VIAL IVP ONE (14:15)
[2017-10-18 14:25] LABS: BACTERIA,URINE FEW /HPF (None Seen); MUCUS,URINE 1+ /LPF (None Seen); WBC,URINE 0-3 /HPF (0-3)
[2017-10-18] MEDS ORDERED: methylPREDNISolone SOD SUCC/PF 62.5 MG/ML VIAL IVP ONE (14:45)
[2017-10-18] MEDS ORDERED: IPRATROPIUM/ALBUTEROL SULFATE 3 ML AMPUL.NEB INH PRN (15:00)
[2017-10-18] MEDS ORDERED: cloNIDine HCL 0.1 MG TABLET PO PRN (15:15)
[2017-10-18 16:30] VITALS: BP_SYST 135
[2017-10-18] MEDS: sulfASALAZINE 500 MG TABLET (AZULFIDINE) PO SCH ×2 (17:27→21:38)
[2017-10-18] MEDS: AZITHROMYCIN 500 MG in NS 250 ML IV SCH (17:27)
[2017-10-18] MEDS ORDERED: TERI2.4P SQ (18:57)
[2017-10-18] MEDS: cefTRIAXone 1 GM in D5W 50 ML IV SCH (19:48)
[2017-10-18 19:50] VITALS: BP_SYST 135
[2017-10-18 20:03] VITALS: BP_SYST 135
[2017-10-18] MEDS: IPRATROPIUM/ALBUTEROL SULFATE 3 ML AMPUL.NEB INH SCH ×2 (20:14→23:59)
[2017-10-18] MEDS: OMEGA-3/DHA/EPA/FISH OIL 1 GM CAPSULE PO SCH (21:36)
[2017-10-18] MEDS: ASCORBIC ACID 500 MG TABLET PO SCH (21:38)
[2017-10-18] MEDS: ACETAMINOPHEN 325 MG TABLET PO SCH (21:38)
[2017-10-18] MEDS: ENOXAPARIN SODIUM 40 MG/0.4 ML SYRINGE SUBCUT SCH (21:43)
[2017-10-18] MEDS: CARVEDILOL 3.125 MG TABLET (COREG) PO SCH (21:44)
[2017-10-18] MEDS: methylPREDNISolone SOD SUCC/PF 62.5 MG/ML VIAL IVP SCH (21:54)
[2017-10-19 03:16] VITALS: BP_SYST 115
[2017-10-19] MEDS: IPRATROPIUM/ALBUTEROL SULFATE 3 ML AMPUL.NEB INH SCH ×4 (03:22→19:35)
[2017-10-19] MEDS: LEVOTHYROXINE SODIUM 0.125 MG TABLET PO SCH (06:04)
[2017-10-19] MEDS: methylPREDNISolone SOD SUCC/PF 62.5 MG/ML VIAL IVP SCH ×3 (06:10→21:31)
[2017-10-19 06:56] LABS: BASOPHILS % (AUTO) 0.1 % (0.0-2.0); HEMATOCRIT 34.3 % (36-48); HEMOGLOBIN 11.4 g/dL (12.0-16.0); LYMPHOCYTES # (AUTO) 0.6 K/uL (1.0-5.5); MEAN CORPUSCULAR HEMOGLOBIN 33 pg (27-31); MEAN CORPUSCULAR HGB CONC 33 % (32-36); MEAN CORPUSCULAR VOLUME 97 fL (79.0-98.0); MONOCYTES # (AUTO) 0.4 K/uL (0.0-1.0); MONOCYTES % (AUTO) 5.2 % (1.7-9.3); NEUTROPHILS % (AUTO) 85.7 % (40.0-70.0); PLATELET COUNT (AUTO) 232 K/uL (130-430); RED BLOOD CELL COUNT(AUTO) 3.52 MIL/uL (4.2-6.2); RED CELL DISTRIBUTION WIDTH 16.6 % (9.0-15.0)
[2017-10-19 08:30] VITALS: BP_SYST 146
[2017-10-19 08:42] LABS: CHLORIDE 100 mmol/L (98-107)
[2017-10-19 08:44] LABS: SODIUM SERUM 138 mmol/L (136-145)
[2017-10-19] MEDS: OMEGA-3/DHA/EPA/FISH OIL 1 GM CAPSULE PO SCH ×2 (08:46→20:27)
[2017-10-19] MEDS: BISACODYL 5 MG TABLET.DR (DULCOLAX) PO SCH (08:46)
[2017-10-19] MEDS: CALCIUM 600/VIT D PO SCH (08:46)
[2017-10-19] MEDS: ASCORBIC ACID 500 MG TABLET PO SCH ×2 (08:46→20:27)
[2017-10-19] MEDS: ASPIRIN 81 MG TAB.CHEW PO SCH (08:47)
[2017-10-19] MEDS: HYDROXYCHLOROQUINE SULFATE 200 MG TABLET PO SCH (08:47)
[2017-10-19] MEDS: sulfASALAZINE 500 MG TABLET (AZULFIDINE) PO SCH ×4 (08:48→20:26)
[2017-10-19] MEDS: ACETAMINOPHEN 325 MG TABLET PO SCH ×2 (08:48→20:27)
[2017-10-19] MEDS: CARVEDILOL 3.125 MG TABLET (COREG) PO SCH ×2 (08:49→20:27)
[2017-10-19] MEDS ORDERED: HYDROCHLOROTHIAZIDE PO SCH (09:00)
[2017-10-19] MEDS ORDERED: VALSARTAN PO SCH (09:00)
[2017-10-19] MEDS ORDERED: [UNRECOGNIZED DRUG - OTHER] PO SCH (09:00)
[2017-10-19] MEDS ORDERED: VALSARTAN 80 MG TABLET (DIOVAN) PO SCH (09:00)
[2017-10-19] MEDS ORDERED: NON-FORMULARY MEDICATION (Folic Acid 0.8 MG) PO SCH (09:00)
[2017-10-19] MEDS ORDERED: HYDROCHLOROTHIAZIDE 12.5 MG CAPSULE (HCTZ) PO SCH (09:00)
[2017-10-19] MEDS ORDERED: [UNRECOGNIZED DRUG - OTHER] PO SCH (09:00)
[2017-10-19 09:06] LABS: ANION GAP 15 (5-15); CHOLESTEROL 185 mg/dL (<200); CREATININE 1.26 mg/dL (0.55-1.30); FREE T4 (FREE THYROXINE) 0.8 ng/dL (0.6-1.6); GLUCOSE 116 mg/dL (70-99); HDL CHOLESTEROL 68 mg/dL (>55); LDL CHOLESTEROL 103 mg/dL (<100); POTASSIUM 4.3 mmol/L (3.5-5.1); TRIGLYCERIDES 76 mg/dL (30-150); UREA NITROGEN, BLOOD 30 mg/dL (8-21)
[2017-10-19] MEDS ORDERED: FUROSEMIDE 40 MG TABLET PO ONE (10:00)
[2017-10-19 12:00] VITALS: BP_SYST 100
[2017-10-19] MEDS ORDERED: MULTIVITS,CA,MINERALS/IRON/FA 1 TABLET PO ONE (14:15)
[2017-10-19 15:36] LABS: TOTAL IRON BIND. CAPACITY 218 ug/dL (250-450)
[2017-10-19 16:42] VITALS: BP_SYST 117
[2017-10-19] MEDS: AZITHROMYCIN 500 MG in NS 250 ML IV SCH (16:57)
[2017-10-19] MEDS: TERIPARATIDE SUBCUT SCH (17:14)
[2017-10-19] MEDS ORDERED: TERIPARATIDE SUBCUT SCH (18:00)
[2017-10-19 19:10] VITALS: BP_SYST 118
[2017-10-19] MEDS: cefTRIAXone 1 GM in D5W 50 ML IV SCH (19:19)
[2017-10-19] MEDS: ENOXAPARIN SODIUM 40 MG/0.4 ML SYRINGE SUBCUT SCH (20:32)
[2017-10-19] MEDS: DIAZEPAM 5 MG TABLET (VALIUM) PO SCH (21:31)
[2017-10-20 00:11] VITALS: BP_SYST 131
[2017-10-20] MEDS: IPRATROPIUM/ALBUTEROL SULFATE 3 ML AMPUL.NEB INH SCH ×4 (01:05→20:13)
[2017-10-20] MEDS: methylPREDNISolone SOD SUCC/PF 62.5 MG/ML VIAL IVP SCH ×3 (05:06→21:10)
[2017-10-20] MEDS: LEVOTHYROXINE SODIUM 0.125 MG TABLET PO SCH (06:14)
[2017-10-20 06:36] LABS: ANION GAP 12 (5-15); CALCIUM 7.9 mg/dL (8.4-11.0); CHLORIDE 99 mmol/L (98-107); CREATININE 1.71 mg/dL (0.55-1.30); GLUCOSE 137 mg/dL (70-99); POTASSIUM 4.6 mmol/L (3.5-5.1); SODIUM SERUM 133 mmol/L (136-145); UREA NITROGEN, BLOOD 47 mg/dL (8-21)
[2017-10-20 07:54] LABS: BASOPHILS % (AUTO) 0.2 % (0.0-2.0); EOSINOPHILS # (AUTO) 0.1 K/uL (0.0-0.4); EOSINOPHILS % (AUTO) 0.8 % (0.0-4.0); HEMATOCRIT 29.1 % (36-48); HEMOGLOBIN 9.7 g/dL (12.0-16.0); LYMPHOCYTES % (AUTO) 12.2 % (20.5-51.5); MEAN CORPUSCULAR HEMOGLOBIN 32 pg (27-31); MEAN CORPUSCULAR HGB CONC 33 % (32-36); MEAN CORPUSCULAR VOLUME 96 fL (79.0-98.0); MONOCYTES # (AUTO) 0.4 K/uL (0.0-1.0); MONOCYTES % (AUTO) 4.7 % (1.7-9.3); NEUTROPHILS # (AUTO) 6.4 K/uL (1.8-7.7); PLATELET COUNT (AUTO) 314 K/uL (130-430); RED BLOOD CELL COUNT(AUTO) 3.05 MIL/uL (4.2-6.2); RED CELL DISTRIBUTION WIDTH 16.6 % (9.0-15.0); WHITE BLOOD COUNT (AUTO) 7.9 K/uL (4.8-10.8)
[2017-10-20 08:00] VITALS: BP_SYST 124
[2017-10-20] MEDS ORDERED: TERIPARATIDE SUBCUT SCH (09:00)
[2017-10-20] MEDS: ACETAMINOPHEN 325 MG TABLET PO SCH ×2 (09:27→21:08)
[2017-10-20] MEDS: ASCORBIC ACID 500 MG TABLET PO SCH ×2 (09:28→21:08)
[2017-10-20] MEDS: ASPIRIN 81 MG TAB.CHEW PO SCH (09:28)
[2017-10-20] MEDS: HYDROXYCHLOROQUINE SULFATE 200 MG TABLET PO SCH (09:28)
[2017-10-20] MEDS: CALCIUM 600/VIT D PO SCH (09:28)
[2017-10-20] MEDS: MULTIVITS,CA,MINERALS/IRON/FA 1 TABLET PO SCH (09:28)
[2017-10-20] MEDS: OMEGA-3/DHA/EPA/FISH OIL 1 GM CAPSULE PO SCH ×2 (09:28→21:08)
[2017-10-20] MEDS: CARVEDILOL 3.125 MG TABLET (COREG) PO SCH ×2 (09:29→21:09)
[2017-10-20] MEDS: BISACODYL 5 MG TABLET.DR (DULCOLAX) PO SCH (09:30)
[2017-10-20] MEDS: FUROSEMIDE 40 MG TABLET PO SCH (09:30)
[2017-10-20] MEDS: sulfASALAZINE 500 MG TABLET (AZULFIDINE) PO SCH ×4 (10:27→21:00)
[2017-10-20 11:15] LABS: NEUTROPHILS % (AUTO) 82.1 % (40.0-70.0)
[2017-10-20 11:20] VITALS: BP_SYST 116
[2017-10-20] MEDS ORDERED: FLUCONAZOLE 200 MG TABLET (DIFLUCAN) PO ONE (15:15)
[2017-10-20 15:18] VITALS: BP_SYST 122
[2017-10-20] MEDS: SOD FERRIC GLUC COMPLEX/SUC 125 MG in NS 100 ML IV SCH (17:32)
[2017-10-20] MEDS: TERIPARATIDE SUBCUT SCH (17:59)
[2017-10-20] MEDS: cefTRIAXone 1 GM in D5W 50 ML IV SCH (18:45)
[2017-10-20 19:05] VITALS: BP_SYST 125
[2017-10-20] MEDS: AZITHROMYCIN 500 MG in NS 250 ML IV SCH (19:29)
[2017-10-20] MEDS: BUDESONIDE 0.5 MG/2 ML AMPUL.NEB INH SCH (20:24)
[2017-10-20] MEDS: ENOXAPARIN SODIUM 40 MG/0.4 ML SYRINGE SUBCUT SCH (21:11)
[2017-10-20] MEDS: DIAZEPAM 5 MG TABLET (VALIUM) PO SCH (21:12)
[2017-10-21] VITALS (7 sets, daily range): BP systolic 122–182
[2017-10-21] MEDS: IPRATROPIUM/ALBUTEROL SULFATE 3 ML AMPUL.NEB INH SCH ×4 (01:00→19:43)
[2017-10-21] MEDS: methylPREDNISolone SOD SUCC/PF 62.5 MG/ML VIAL IVP SCH ×2 (06:00→14:02)
[2017-10-21] MEDS: LEVOTHYROXINE SODIUM 0.125 MG TABLET PO SCH (06:00)
[2017-10-21 06:56] LABS: ALANINE AMINOTRANSFERASE 20 U/L (12-78); ALBUMIN 3.1 g/dL (3.4-4.8); ANION GAP 10 (5-15); ASPARTATE AMINOTRANSFERASE 24 U/L (10-37); BASOPHILS % (AUTO) 0.2 % (0.0-2.0); CALCIUM 8.5 mg/dL (8.4-11.0); CHLORIDE 100 mmol/L (98-107); CREATININE 1.29 mg/dL (0.55-1.30); GLUCOSE 126 mg/dL (70-99); MEAN CORPUSCULAR HEMOGLOBIN 32 pg (27-31); MEAN CORPUSCULAR HGB CONC 34 % (32-36); MEAN CORPUSCULAR VOLUME 95 fL (79.0-98.0); MONOCYTES # (AUTO) 0.4 K/uL (0.0-1.0); MONOCYTES % (AUTO) 7.3 % (1.7-9.3); NEUTROPHILS # (AUTO) 4.7 K/uL (1.8-7.7); NEUTROPHILS % (AUTO) 76.5 % (40.0-70.0); PLATELET COUNT (AUTO) 276 K/uL (130-430); POTASSIUM 4.6 mmol/L (3.5-5.1); RED BLOOD CELL COUNT(AUTO) 3.15 MIL/uL (4.2-6.2); RED CELL DISTRIBUTION WIDTH 16.1 % (9.0-15.0); SODIUM SERUM 135 mmol/L (136-145); TOTAL BILIRUBIN 0.2 mg/dL (0.0-1.0); UREA NITROGEN, BLOOD 44 mg/dL (8-21); WHITE BLOOD COUNT (AUTO) 6.1 K/uL (4.8-10.8)
[2017-10-21] MEDS: CALCIUM 600/VIT D PO SCH (08:56)
[2017-10-21] MEDS: HYDROXYCHLOROQUINE SULFATE 200 MG TABLET PO SCH (08:56)
[2017-10-21] MEDS: BISACODYL 5 MG TABLET.DR (DULCOLAX) PO SCH (08:56)
[2017-10-21] MEDS: MULTIVITS,CA,MINERALS/IRON/FA 1 TABLET PO SCH (08:56)
[2017-10-21] MEDS: ASPIRIN 81 MG TAB.CHEW PO SCH (08:56)
[2017-10-21] MEDS: ASCORBIC ACID 500 MG TABLET PO SCH (08:57)
[2017-10-21] MEDS: OMEGA-3/DHA/EPA/FISH OIL 1 GM CAPSULE PO SCH (08:57)
[2017-10-21] MEDS: sulfASALAZINE 500 MG TABLET (AZULFIDINE) PO SCH ×3 (08:57→17:06)
[2017-10-21] MEDS: ACETAMINOPHEN 325 MG TABLET PO SCH ×3 (08:58→11:28)
[2017-10-21] MEDS: CARVEDILOL 3.125 MG TABLET (COREG) PO SCH (08:59)
[2017-10-21] MEDS: FUROSEMIDE 40 MG TABLET PO SCH (08:59)
[2017-10-21] MEDS ORDERED: FLUCONAZOLE 200 MG TABLET (DIFLUCAN) PO SCH (09:00)
[2017-10-21] MEDS: BUDESONIDE 0.5 MG/2 ML AMPUL.NEB INH SCH ×2 (09:22→19:52)
[2017-10-21] MEDS: SOD FERRIC GLUC COMPLEX/SUC 125 MG in NS 100 ML IV SCH (16:26)
[2017-10-21] MEDS: TERIPARATIDE SUBCUT SCH (17:22)
[2017-10-21] MEDS: cefTRIAXone 1 GM in D5W 50 ML IV SCH (18:00)
[2017-10-21] MEDS: AZITHROMYCIN 500 MG in NS 250 ML IV SCH (18:11)
[2017-10-26 23:08] LABS: MYCOPLASMA PNEUMONIAE IgM <770 U/mL (0-769)
== END 2017-10-21 20:38 | DRG 291 ==
LOC: SED 10:59 → STU 14:40 → SMU 10-21 14:29
PROVIDERS: ADMIT Internal Medicine; ATTEND Internal Medicine
DX: I13.0 Hypertensive heart and chronic kidney disease with heart failure and stage 1 through stage 4 chronic kidney disease, or unspecified chronic kidney disease (principal); J96.01 Acute respiratory failure with hypoxia; I50.33 Acute on chronic diastolic (congestive) heart failure; J44.1 Chronic obstructive pulmonary disease with (acute) exacerbation; J44.0 Chronic obstructive pulmonary disease with (acute) lower respiratory infection; N18.4 Chronic kidney disease, stage 4 (severe); J20.9 Acute bronchitis, unspecified; I48.0 Paroxysmal atrial fibrillation; M06.9 Rheumatoid arthritis, unspecified; M19.90 Unspecified osteoarthritis, unspecified site; E78.5 Hyperlipidemia, unspecified; M47.9 Spondylosis, unspecified; M81.0 Age-related osteoporosis without current pathological fracture; D63.8 Anemia in other chronic diseases classified elsewhere; E03.9 Hypothyroidism, unspecified; F41.9 Anxiety disorder, unspecified; Z96.643 Presence of artificial hip joint, bilateral; I44.7 Left bundle-branch block, unspecified; Z96.653 Presence of artificial knee joint, bilateral; Z96.612 Presence of left artificial shoulder joint; M21.962 Unspecified acquired deformity of left lower leg; G62.9 Polyneuropathy, unspecified; D50.9 Iron deficiency anemia, unspecified; G89.29 Other chronic pain; K21.9 Gastro-esophageal reflux disease without esophagitis; M62.58 Muscle wasting and atrophy, not elsewhere classified, other site; Z88.6 Allergy status to analgesic agent; Z91.048 Other nonmedicinal substance allergy status; Z79.899 Other long term (current) drug therapy; Z79.82 Long term (current) use of aspirin; Z90.49 Acquired absence of other specified parts of digestive tract; Z90.710 Acquired absence of both cervix and uterus; Z87.891 Personal history of nicotine dependence
CPT/HCPCS: 36415; 36600; 71045; 71275; 80048; 80053; 80061; 81000-TC; 82803-TC; 83540-TC; 83550-TC; 83605; 83735-TC; 83880; 84439; 84484; 85025; 85379; 85610-TC; 85651-TC; 85730-TC; 86635; 86738; 87040-TC; 87081; 87086; 87449; 93005; 93970; 94640; 94760; 96361; 96374; 96375; 97110-GP; 97116-GP; 97530-GP; 97535-GP; 99285; J0456; J0696; J1650; J1940; J2060; J2405; J2916; J2930; J7030; J7050; J7060; J7620; J7626; Q9967

== ENCOUNTER 2018-03-23 20:46 | Inpatient (IN) | payer OTHER, MEDICARE ==
[~2018-03-23] VITALS: Ht 149.9 cm; Wt 68.0 kg
[2018-03-23 20:46] VITALS: BP_SYST 173
[~2018-03-23 20:46] MED LIST changes: +ACET-2439 PO; -ACET650T7 PO; -CALC-1124 PO; +HYDR200T80 PO; -PLA200 PO; +[UNRECOGNIZED DRUG - CODE] PO
[2018-03-23 22:03] LABS: BASOPHILS # (AUTO) 0.1 K/uL (0.0-0.2); BASOPHILS % (AUTO) 0.7 % (0.0-2.0); EOSINOPHILS # (AUTO) 0.1 K/uL (0.0-0.4); EOSINOPHILS % (AUTO) 0.8 % (0.0-4.0); HEMATOCRIT 29.5 % (36-48); HEMOGLOBIN 9.3 g/dL (12.0-16.0); LYMPHOCYTES % (AUTO) 10.4 % (20.5-51.5); MEAN CORPUSCULAR HEMOGLOBIN 33 pg (27-31); MEAN CORPUSCULAR HGB CONC 32 % (32-36); MEAN CORPUSCULAR VOLUME 104 fL (79.0-98.0); MONOCYTES # (AUTO) 0.4 K/uL (0.0-1.0); MONOCYTES % (AUTO) 3.7 % (1.7-9.3); NEUTROPHILS # (AUTO) 8.1 K/uL (1.8-7.7); NEUTROPHILS % (AUTO) 84.4 % (40.0-70.0); PLATELET COUNT (AUTO) 286 K/uL (130-430); RED BLOOD CELL COUNT(AUTO) 2.85 MIL/uL (4.2-6.2); RED CELL DISTRIBUTION WIDTH 14.7 % (9.0-15.0); WHITE BLOOD COUNT (AUTO) 9.7 K/uL (4.8-10.8)
[2018-03-23 22:16] LABS: PROTHROMBIN TIME 9.8 SECS (9.5-12.5)
[2018-03-23 22:56] LABS: BILIRUBIN,URINE NEGATIVE (NEGATIVE); BLOOD, URINE 3+ (NEGATIVE); CLARITY/URINE CLEAR (CLEAR); COLOR,URINE YELLOW (YELLOW); GLUCOSE,URINE NEGATIVE (NEGATIVE); KETONES,URINE NEGATIVE (NEGATIVE); LEUKOCYTE ESTERASE ,URINE 1+ (NEGATIVE); NITRITE, URINE NEGATIVE (NEGATIVE); PH,URINE 5.5 (5.0-8.0); PROTEIN URINE NEGATIVE (NEGATIVE); UROBILINOGEN,URINE 0.2 (0.2-1.0)
[2018-03-23 23:22] LABS: ANION GAP 10 (5-15); CALCIUM 9.5 mg/dL (8.4-11.0); CHLORIDE 107 mmol/L (98-107); CREATININE 1.18 mg/dL (0.55-1.30); GLUCOSE 101 mg/dL (70-99); SODIUM SERUM 140 mmol/L (136-145); UREA NITROGEN, BLOOD 32 mg/dL (8-21)
[2018-03-23 23:23] LABS: BACTERIA,URINE FEW /HPF (None Seen); RBC,URINE 50-80 /HPF (0-3); WBC,URINE 20-50 /HPF (0-3)
[2018-03-23 23:25] LABS: OTHER CRYSTALS,URINE SODIUM URATES 1+ /HPF (None Seen)
[2018-03-23 23:29] LABS: ALANINE AMINOTRANSFERASE 17 U/L (12-78); ALBUMIN 3.4 g/dL (3.4-4.8); ASPARTATE AMINOTRANSFERASE 18 U/L (10-37); TOTAL BILIRUBIN 0.4 mg/dL (0.0-1.0)
[2018-03-23] MEDS ORDERED: DEXTROSE 50% JECT 50 ML DISP.SYRIN IVP ONE (23:45)
[2018-03-23] MEDS ORDERED: INSULIN REGULAR, HUMAN 10 UNITS/0.1 ML INJ IVP ONE (23:45)
[2018-03-23] MEDS ORDERED: cefTRIAXone 1 GM IVPB PREMIX 50 ML IV ONE (23:45)
[2018-03-23] MEDS ORDERED: SODIUM POLYSTYRENE SULFONATE 15 GM/60 ML UDBTL PO ONE (23:45)
[2018-03-24] MEDS ORDERED: IOHEXOL 100 ML IV ONE (00:09)
[2018-03-24 01:34] VITALS: BP_SYST 159
[2018-03-24] MEDS: NACL 0.9% 1,000 ML IV SCH ×2 (02:24→17:20)
[2018-03-24 07:35] LABS: BASOPHILS % (AUTO) 0.4 % (0.0-2.0); EOSINOPHILS # (AUTO) 0.1 K/uL (0.0-0.4); EOSINOPHILS % (AUTO) 0.5 % (0.0-4.0); HEMATOCRIT 26.9 % (36-48); HEMOGLOBIN 8.8 g/dL (12.0-16.0); LYMPHOCYTES # (AUTO) 0.8 K/uL (1.0-5.5); LYMPHOCYTES % (AUTO) 7.2 % (20.5-51.5); MEAN CORPUSCULAR HEMOGLOBIN 34 pg (27-31); MEAN CORPUSCULAR HGB CONC 33 % (32-36); MEAN CORPUSCULAR VOLUME 104 fL (79.0-98.0); MONOCYTES # (AUTO) 0.5 K/uL (0.0-1.0); MONOCYTES % (AUTO) 4.2 % (1.7-9.3); NEUTROPHILS # (AUTO) 10.1 K/uL (1.8-7.7); NEUTROPHILS % (AUTO) 87.7 % (40.0-70.0); PLATELET COUNT (AUTO) 276 K/uL (130-430); RED BLOOD CELL COUNT(AUTO) 2.59 MIL/uL (4.2-6.2); RED CELL DISTRIBUTION WIDTH 14.7 % (9.0-15.0); WHITE BLOOD COUNT (AUTO) 11.5 K/uL (4.8-10.8)
[2018-03-24 07:41] LABS: ANION GAP 9 (5-15); CALCIUM 8.7 mg/dL (8.4-11.0); CHLORIDE 110 mmol/L (98-107); CREATININE 0.91 mg/dL (0.55-1.30); GLUCOSE 63 mg/dL (70-99); POTASSIUM 4.6 mmol/L (3.5-5.1); SODIUM SERUM 144 mmol/L (136-145); UREA NITROGEN, BLOOD 28 mg/dL (8-21)
[2018-03-24 08:15] VITALS: BP_SYST 137
[2018-03-24] MEDS ORDERED: PREDNISONE 5 MG TABLET PO ONE (08:45)
[2018-03-24] MEDS: HYDROXYCHLOROQUINE SULFATE 200 MG TABLET PO SCH (09:49)
[2018-03-24] MEDS: BISACODYL 5 MG TABLET.DR (DULCOLAX) PO SCH (09:49)
[2018-03-24] MEDS: LACTOBACILLUS RHAMNOSUS GG 1 CAP CAPSULE PO SCH (09:50)
[2018-03-24] MEDS: VALSARTAN 80 MG TABLET (DIOVAN) PO SCH (09:50)
[2018-03-24] MEDS: ASCORBIC ACID 500 MG TABLET PO SCH ×2 (09:50→21:14)
[2018-03-24] MEDS: HYDROCHLOROTHIAZIDE 12.5 MG CAPSULE (HCTZ) PO SCH (09:51)
[2018-03-24] MEDS: CARVEDILOL 3.125 MG TABLET (COREG) PO SCH ×2 (09:51→21:12)
[2018-03-24] MEDS: cefTRIAXone 2 GM in D5W 50 ML IV SCH (09:52)
[2018-03-24 12:00] VITALS: BP_SYST 133
[2018-03-24 16:00] VITALS: BP_SYST 135
[2018-03-24 20:10] VITALS: BP_SYST 120
[2018-03-24] MEDS: ACETAMINOPHEN 325 MG TABLET PO SCH (21:14)
[2018-03-25 00:16] VITALS: BP_SYST 113
[2018-03-25] MEDS: LEVOTHYROXINE SODIUM 0.125 MG TABLET PO SCH (06:28)
[2018-03-25] MEDS: NACL 0.9% 1,000 ML IV SCH ×2 (06:29→21:39)
[2018-03-25 07:56] LABS: ANION GAP 10 (5-15); CALCIUM 7.8 mg/dL (8.4-11.0); CHLORIDE 109 mmol/L (98-107); CREATININE 1.01 mg/dL (0.55-1.30); GLUCOSE 87 mg/dL (70-99); SODIUM SERUM 144 mmol/L (136-145); UREA NITROGEN, BLOOD 22 mg/dL (8-21)
[2018-03-25 08:00] VITALS: BP_SYST 122
[2018-03-25 08:19] LABS: BASOPHILS # (AUTO) 0.1 K/uL (0.0-0.2); BASOPHILS % (AUTO) 0.8 % (0.0-2.0); EOSINOPHILS # (AUTO) 0.2 K/uL (0.0-0.4); EOSINOPHILS % (AUTO) 2.7 % (0.0-4.0); HEMATOCRIT 25.4 % (36-48); HEMOGLOBIN 8.4 g/dL (12.0-16.0); LYMPHOCYTES # (AUTO) 1.1 K/uL (1.0-5.5); MEAN CORPUSCULAR HEMOGLOBIN 34 pg (27-31); MEAN CORPUSCULAR HGB CONC 33 % (32-36); MEAN CORPUSCULAR VOLUME 103 fL (79.0-98.0); MONOCYTES # (AUTO) 0.2 K/uL (0.0-1.0); MONOCYTES % (AUTO) 2.6 % (1.7-9.3); NEUTROPHILS # (AUTO) 5.6 K/uL (1.8-7.7); NEUTROPHILS % (AUTO) 78.9 % (40.0-70.0); PLATELET COUNT (AUTO) 252 K/uL (130-430); RED BLOOD CELL COUNT(AUTO) 2.47 MIL/uL (4.2-6.2); RED CELL DISTRIBUTION WIDTH 14.8 % (9.0-15.0); WHITE BLOOD COUNT (AUTO) 7.2 K/uL (4.8-10.8)
[2018-03-25] MEDS: ACETAMINOPHEN 325 MG TABLET PO SCH ×2 (08:55→20:13)
[2018-03-25] MEDS: VALSARTAN 80 MG TABLET (DIOVAN) PO SCH (08:56)
[2018-03-25] MEDS: HYDROXYCHLOROQUINE SULFATE 200 MG TABLET PO SCH (08:56)
[2018-03-25] MEDS: HYDROCHLOROTHIAZIDE 12.5 MG CAPSULE (HCTZ) PO SCH (08:56)
[2018-03-25] MEDS: ASCORBIC ACID 500 MG TABLET PO SCH ×2 (08:56→20:13)
[2018-03-25] MEDS: LACTOBACILLUS RHAMNOSUS GG 1 CAP CAPSULE PO SCH (08:56)
[2018-03-25] MEDS: cefTRIAXone 2 GM in D5W 50 ML IV SCH (08:57)
[2018-03-25] MEDS: PREDNISONE 5 MG TABLET PO SCH (08:57)
[2018-03-25] MEDS: CARVEDILOL 3.125 MG TABLET (COREG) PO SCH ×2 (08:57→20:13)
[2018-03-25] MEDS: BISACODYL 5 MG TABLET.DR (DULCOLAX) PO SCH (08:58)
[2018-03-25 12:00] VITALS: BP_SYST 120
[2018-03-25 17:19] VITALS: BP_SYST 148
[2018-03-25 20:00] VITALS: BP_SYST 135
[2018-03-26 01:16] VITALS: BP_SYST 128
[2018-03-26] MEDS: LEVOTHYROXINE SODIUM 0.125 MG TABLET PO SCH (06:16)
[2018-03-26 08:00] VITALS: BP_SYST 150
[2018-03-26 08:45] LABS: CREATININE 0.91 mg/dL (0.55-1.30); GLUCOSE 87 mg/dL (70-99); UREA NITROGEN, BLOOD 21 mg/dL (8-21)
[2018-03-26] MEDS: ASCORBIC ACID 500 MG TABLET PO SCH (08:55)
[2018-03-26] MEDS: HYDROCHLOROTHIAZIDE 12.5 MG CAPSULE (HCTZ) PO SCH (08:55)
[2018-03-26] MEDS: PREDNISONE 5 MG TABLET PO SCH (08:55)
[2018-03-26] MEDS: ACETAMINOPHEN 325 MG TABLET PO SCH (08:55)
[2018-03-26] MEDS: LACTOBACILLUS RHAMNOSUS GG 1 CAP CAPSULE PO SCH (08:55)
[2018-03-26] MEDS: CARVEDILOL 3.125 MG TABLET (COREG) PO SCH (08:56)
[2018-03-26] MEDS: BISACODYL 5 MG TABLET.DR (DULCOLAX) PO SCH (08:56)
[2018-03-26] MEDS: HYDROXYCHLOROQUINE SULFATE 200 MG TABLET PO SCH (08:57)
[2018-03-26] MEDS: VALSARTAN 80 MG TABLET (DIOVAN) PO SCH (08:57)
[2018-03-26] MEDS: cefTRIAXone 2 GM in D5W 50 ML IV SCH (08:58)
[2018-03-26 09:03] LABS: ANION GAP 8 (5-15); CHLORIDE 111 mmol/L (98-107); SODIUM SERUM 144 mmol/L (136-145)
[2018-03-26 12:00] VITALS: BP_SYST 151
== END 2018-03-26 13:00 | disposition home or self-care (01) | DRG 393 ==
LOC: SED 20:46 → SMU 03-24 00:54 → STU 03-24 01:25
PROVIDERS: ADMIT Family Medicine; ATTEND Family Medicine
DX: K61.0 Anal abscess (principal); N17.0 Acute kidney failure with tubular necrosis; L02.31 Cutaneous abscess of buttock; N39.0 Urinary tract infection, site not specified; L03.317 Cellulitis of buttock; D53.9 Nutritional anemia, unspecified; E03.9 Hypothyroidism, unspecified; W19.XXXA Unspecified fall, initial encounter; Y92.098 Other place in other non-institutional residence as the place of occurrence of the external cause; E87.5 Hyperkalemia; I10 Essential (primary) hypertension; I48.2 Chronic atrial fibrillation; M06.9 Rheumatoid arthritis, unspecified; R26.81 Unsteadiness on feet; Z88.5 Allergy status to narcotic agent; Z91.048 Other nonmedicinal substance allergy status; Z79.82 Long term (current) use of aspirin; Z79.899 Other long term (current) drug therapy; Z90.49 Acquired absence of other specified parts of digestive tract; Z90.710 Acquired absence of both cervix and uterus; Y93.89 Activity, other specified; Y99.8 Other external cause status; Z79.1 Long term (current) use of non-steroidal anti-inflammatories (NSAID)
CPT/HCPCS: 36415; 71045; 76857; 80048; 80053; 81000-TC; 82962; 83036; 83605; 83735-TC; 84100-TC; 84484; 85025; 85610-TC; 85730-TC; 87040-TC; 87070-TC; 87086; 87186-TC; 93005; 96365; 96375; 97530-GP; 99285; G0378; J0696; J1815; J7030; J7060; J7512; Q9967

== ENCOUNTER 2019-05-28 10:44 | Inpatient (IN) | payer OTHER, MEDICARE ==
[~2019-05-28] VITALS: Ht 149.9 cm; Wt 63.2 kg
[~2019-05-28 10:44] MED LIST changes: -AZU500 PO
[2019-05-28 11:00] VITALS: BP_SYST 142
--- NOTE | 2019-05-28 11:00 | NUR ---
PATIENT TO ER #4 AT 1100
--- NOTE | 2019-05-28 11:05 | NUR ---
PATIENT PRESENTS TO THE ER WITH HX OF SEVERE LEFT HIP PAIN FOR TWO DAYS; NO TRAUMA, NO OTHER REMARKABLE S/S
--- NOTE | 2019-05-28 11:20 | NUR ---
ER Dr. Hernandez at bedside examining patient.
--- NOTE | 2019-05-28 11:28 | NUR ---
Patient to radiology via gurney.
--- NOTE | 2019-05-28 12:45 | NUR ---
ER Dr. Hernandez at bedside examining patient.
--- NOTE | 2019-05-28 12:55 | NUR ---
# 20 gauge angiocath placed to left arm . Use of asceptic technique. Opsite placed over site. Blood return noted. Blood for lab drawn from site. Flushed with 10 cc of normal saline. No evidence of infiltration noted. Patient tolerated well.
--- NOTE | 2019-05-28 13:00 | NUR ---
Patient assisted on bed gonzalez
[2019-05-28 13:39] LABS: BASOPHILS # (AUTO) 0.1 K/uL (0.0-0.2); BASOPHILS % (AUTO) 0.9 % (0.0-2.0); EOSINOPHILS % (AUTO) 0.3 % (0.0-4.0); HEMATOCRIT 29.9 % (36-48); HEMOGLOBIN 9.9 g/dL (12.0-16.0); LYMPHOCYTES # (AUTO) 0.7 K/uL (1.0-5.5); LYMPHOCYTES % (AUTO) 8.2 % (20.5-51.5); MEAN CORPUSCULAR HEMOGLOBIN 36 pg (27-31); MEAN CORPUSCULAR HGB CONC 33 % (32-36); MEAN CORPUSCULAR VOLUME 108 fL (79.0-98.0); MONOCYTES # (AUTO) 0.2 K/uL (0.0-1.0); MONOCYTES % (AUTO) 2.9 % (1.7-9.3); NEUTROPHILS # (AUTO) 7.3 K/uL (1.8-7.7); NEUTROPHILS % (AUTO) 87.7 % (40.0-70.0); PLATELET COUNT (AUTO) 251 K/uL (130-430); RED BLOOD CELL COUNT(AUTO) 2.76 MIL/uL (4.2-6.2); RED CELL DISTRIBUTION WIDTH 13.5 % (9.0-15.0); WHITE BLOOD COUNT (AUTO) 8.3 K/uL (4.8-10.8)
--- NOTE | 2019-05-28 13:52 | NUR ---
Patient will be admitted to care of Dr. Ch. Admitted to MS unit. Will go to room 129B. Belongings list completed. Complete and up to date summary report printed. SBAR report to be given at bedside with opportunity for questions.
[2019-05-28 13:55] LABS: ANION GAP 9 (5-15); CALCIUM 8.2 mg/dL (8.4-11.0); CHLORIDE 103 mmol/L (98-107); CREATININE 1.08 mg/dL (0.55-1.30); GLUCOSE 100 mg/dL (70-99); POTASSIUM 4.4 mmol/L (3.5-5.1); SODIUM SERUM 136 mmol/L (136-145); UREA NITROGEN, BLOOD 25 mg/dL (8-21)
[2019-05-28 14:00] LABS: ALANINE AMINOTRANSFERASE 17 U/L (12-78); ALBUMIN 3.5 g/dL (3.4-4.8); ASPARTATE AMINOTRANSFERASE 22 U/L (10-37); TOTAL BILIRUBIN 0.4 mg/dL (0.0-1.0)
--- NOTE | 2019-05-28 14:00 | NUR ---
Medication reconciliation completed with information provided by PATIENT. Any prior medication reconciliation on file was reviewed and corrected.
--- NOTE | 2019-05-28 14:05 | NUR ---
ADMISSION NOTE: Received patient from ER via gurney. Patient admitted with diagnosis of Hip pain . Patient is awake, alert, oriented X 4. Patient oriented to hospital room, call light, toileting, pain management and safety-teach back done. Patient informed that Kandace will be her nurse and that their room number is 129 B. Personal belongings checked and Belongings List documented. Call light within reach.
[2019-05-28] MEDS ORDERED: SERT25TA PO (14:08)
[2019-05-28] MEDS ORDERED: FURO-150 PO (14:08)
[2019-05-28] MEDS ORDERED: OMEP40CA33 PO (14:08)
--- NOTE | 2019-05-28 14:15 | NUR ---
INITIAL NOTE: RECEIVED PATIENT FROM ER TJ. PATIENT IS AWAKE AND ALERT x4 LAYING DOWN IN BED. FAMILY AT BEDSIDE. PATIENT STATES SHE HAS SOME PAIN IN HER EXTREMITIES WHICH IS AT A 5/10. PATIENT STATES IF SHE DOES NOT MOVE HER PAIN GOES AWAY. PATIENT IS TOLERATING OXYGEN ON ROOM AIR WITH NO SIGNS OF DISTRESS OR SHORTNESS OF BREATH NOTED. IV SITE IS PATENT WITH NO SIGNS OF INFILTRATION NOTED. PATIENT IN STABLE CONDITION. SAFETY, FALL AND ASPIRATION PRECAUTIONS ARE IN PLACE. BED LOCKED IN LOWEST POSITION WITH CALL LIGHT IN REACH. WILL CONTINUE TO MONITOR PATIENT FOR ANY CHANGES.
[2019-05-28 14:43] VITALS: BP_SYST 122
--- NOTE | 2019-05-28 16:10 | NUR ---
RN ROUNDS: PATIENT IS ASLEEP LAYING DOWN IN BED. VITAL SIGNS WERE TAKEN. PATIENT DENIED ANY PAIN AT THE MOMENT. NO SIGNS OF DISTRESS OR SHORTNESS OF BREATH NOTED. PATIENT IN STABLE CONDITION. WILL CONTINUE TO MONITOR PATIENT FOR ANY CHANGES.
[2019-05-28 16:49] VITALS: BP_SYST 94
--- NOTE | 2019-05-28 18:46 | NUR ---
CLOSING NOTES: PATIENT IS AWAKE AND ALERT x4 LAYING DOWN IN BED. PATIENT DENIES ANY PAIN AT THE MOMENT. PATIENT IS TOLERATING OXYGEN ON ROOM AIR WITH NO SIGNS OF DISTRESS OR SHORTNESS OF BREATH NOTED. IV SITE IS PATENT WITH NO SIGNS OF INFILTRATION NOTED. PATIENT IN STABLE CONDITION. SAFETY, FALL AND ASPIRATION PRECAUTIONS REMAINED IN PLACE THROUGHOUT THE SHIFT. BED LOCKED IN LOWEST POSITION WITH CALL LIGHT IN REACH. WILL ENDORSE PATIENT CARE TO ONCOMING RADIO MAINTAINER NURSE.
[2019-05-28] MEDS ORDERED: DIAZEPAM 5 MG TABLET (VALIUM) PO PRN (19:30)
[2019-05-28 20:00] VITALS: BP_SYST 105
--- NOTE | 2019-05-28 20:00 | NUR ---
RECEIVED PT IN BED V/S AND ASSESSMENT DONE ,SAME STABLE.PM CARE GIVEN REPOSITIONED MADE COMFORTABLE,NO DISTRESS NOTED,PO FLUIDS GIVEN SAME TOLERATED WELL
[2019-05-28] MEDS: OMEGA-3/DHA/EPA/FISH OIL 1 GM CAPSULE PO SCH (21:15)
[2019-05-28] MEDS: ACETAMINOPHEN 325 MG TABLET PO SCH (21:16)
[2019-05-28] MEDS: ENOXAPARIN SODIUM 40 MG/0.4 ML SYRINGE SUBCUT SCH (21:19)
[2019-05-28] MEDS: ASCORBIC ACID 500 MG TABLET PO SCH (21:20)
[2019-05-28] MEDS: CARVEDILOL 3.125 MG TABLET (COREG) PO SCH (21:20)
[2019-05-29] VITALS: BP_SYST 100
[2019-05-29 04:00] VITALS: BP_SYST 126
--- NOTE | 2019-05-29 04:00 | NUR ---
AM CAR GIVEN NO DISTRESS NOTED
[2019-05-29] MEDS: LEVOTHYROXINE SODIUM 0.15 MG TABLET PO SCH (05:40)
[2019-05-29] MEDS ORDERED: DEXTROSE 50% JECT 50 ML DISP.SYRIN ONE (06:16)
[2019-05-29] MEDS: ACETAMINOPHEN 325 MG TABLET PO PRN ×4 (06:34→10:33)
[2019-05-29 06:39] LABS: ANION GAP 6 (5-15); CALCIUM 8.2 mg/dL (8.4-11.0); CHLORIDE 106 mmol/L (98-107); GLUCOSE 81 mg/dL (70-99); POTASSIUM 4.3 mmol/L (3.5-5.1); SODIUM SERUM 137 mmol/L (136-145); UREA NITROGEN, BLOOD 26 mg/dL (8-21)
[2019-05-29 06:53] LABS: BASOPHILS # (AUTO) 0.1 K/uL (0.0-0.2); BASOPHILS % (AUTO) 1.8 % (0.0-2.0); EOSINOPHILS # (AUTO) 0.2 K/uL (0.0-0.4); EOSINOPHILS % (AUTO) 3.1 % (0.0-4.0); HEMATOCRIT 28.1 % (36-48); HEMOGLOBIN 9.2 g/dL (12.0-16.0); LYMPHOCYTES # (AUTO) 1.4 K/uL (1.0-5.5); LYMPHOCYTES % (AUTO) 24.9 % (20.5-51.5); MEAN CORPUSCULAR HEMOGLOBIN 36 pg (27-31); MEAN CORPUSCULAR HGB CONC 33 % (32-36); MEAN CORPUSCULAR VOLUME 108 fL (79.0-98.0); MONOCYTES # (AUTO) 0.4 K/uL (0.0-1.0); MONOCYTES % (AUTO) 7.3 % (1.7-9.3); NEUTROPHILS # (AUTO) 3.6 K/uL (1.8-7.7); NEUTROPHILS % (AUTO) 62.9 % (40.0-70.0); PLATELET COUNT (AUTO) 222 K/uL (130-430); RED BLOOD CELL COUNT(AUTO) 2.59 MIL/uL (4.2-6.2); RED CELL DISTRIBUTION WIDTH 14.2 % (9.0-15.0); WHITE BLOOD COUNT (AUTO) 5.8 K/uL (4.8-10.8)
[2019-05-29 07:41] LABS: TOTAL IRON BIND. CAPACITY 231 ug/dL (250-450)
[2019-05-29] MEDS: ACETAMINOPHEN 325 MG TABLET PO SCH ×2 (09:00→22:44)
--- NOTE | 2019-05-29 10:05 | NUR ---
Nutrition Update Chaka Scale 17 noted. Pt admitted for L hip pain. Diet: regular BMI: 28.2 kg/m2 RD to follow per nutrition care standards.
[2019-05-29] MEDS: FOLIC ACID 1 MG TABLET PO SCH (10:21)
[2019-05-29] MEDS: OMEGA-3/DHA/EPA/FISH OIL 1 GM CAPSULE PO SCH ×2 (10:21→22:20)
[2019-05-29] MEDS: CALCIUM CARBONATE/VITAMIN D3 1 TAB TABLET PO SCH (10:22)
[2019-05-29] MEDS: SERTRALINE HCL 50 MG TABLET PO SCH (10:23)
[2019-05-29] MEDS: ASCORBIC ACID 500 MG TABLET PO SCH ×2 (10:23→22:20)
[2019-05-29] MEDS: PANTOPRAZOLE SODIUM 40 MG TAB PO SCH (10:24)
[2019-05-29] MEDS: PREDNISONE 5 MG TABLET PO SCH (10:24)
[2019-05-29] MEDS: CARVEDILOL 3.125 MG TABLET (COREG) PO SCH ×2 (10:28→22:29)
[2019-05-29] MEDS: FUROSEMIDE 20 MG TABLET PO SCH (10:28)
[2019-05-29] MEDS: HYDROXYCHLOROQUINE SULFATE 200 MG TABLET PO SCH (10:29)
[2019-05-29 12:30] VITALS: BP_SYST 121
[2019-05-29 16:24] VITALS: BP_SYST 134
[2019-05-29] MEDS: SOD FERRIC GLUC COMPLEX/SUC 125 MG in NS 100 ML IV SCH (16:30)
--- NOTE | 2019-05-29 16:30 | NUR ---
CONSULTATION PAGED/CALLED Reason for Consultation: [] SACRAL WOUND Person Who was Notified: [] LULU Consulting Physician: [] DR BARFIELD Medical Researcher Specialty: [] GEN SURGEON Ordering Physician: [] DR POE
[2019-05-29] MEDS: ENOXAPARIN SODIUM 40 MG/0.4 ML SYRINGE SUBCUT SCH (22:20)
[2019-05-30] VITALS (7 sets, daily range): BP systolic 122–154
[2019-05-30] MEDS: LEVOTHYROXINE SODIUM 0.15 MG TABLET PO SCH (07:01)
--- NOTE | 2019-05-30 08:00 | NUR ---
initial notes rec patient awake laert with ivl on the l forearm is infiltrated. will be replaced. bed to the lowest position and side rails up and locked. call light within reached. assisted to the br with uisng her own walker and shruthi well. somewhat slow but managed to ambulate
--- NOTE | 2019-05-30 10:30 | NUR ---
rounds due meds were given and shruthi well. call light withn reached.
[2019-05-30] MEDS: FOLIC ACID 1 MG TABLET PO SCH (10:42)
[2019-05-30] MEDS: FUROSEMIDE 20 MG TABLET PO SCH (10:43)
[2019-05-30] MEDS: ASCORBIC ACID 500 MG TABLET PO SCH ×2 (10:43→22:54)
[2019-05-30] MEDS: SERTRALINE HCL 50 MG TABLET PO SCH (10:44)
[2019-05-30] MEDS: OMEGA-3/DHA/EPA/FISH OIL 1 GM CAPSULE PO SCH ×2 (10:44→22:48)
[2019-05-30] MEDS: HYDROXYCHLOROQUINE SULFATE 200 MG TABLET PO SCH (10:44)
[2019-05-30] MEDS: CALCIUM CARBONATE/VITAMIN D3 1 TAB TABLET PO SCH (10:44)
[2019-05-30] MEDS: SOD FERRIC GLUC COMPLEX/SUC 125 MG in NS 100 ML IV SCH (10:45)
[2019-05-30] MEDS: PREDNISONE 5 MG TABLET PO SCH (10:45)
[2019-05-30] MEDS: PANTOPRAZOLE SODIUM 40 MG TAB PO SCH (10:45)
[2019-05-30] MEDS: CARVEDILOL 3.125 MG TABLET (COREG) PO SCH ×2 (10:48→22:51)
[2019-05-30] MEDS: ACETAMINOPHEN 325 MG TABLET PO SCH ×2 (11:28→22:54)
[2019-05-30 12:06] LABS: FOLATE (FOLIC ACID) >20.0 ng/mL (>3.0)
--- NOTE | 2019-05-30 15:28 | NUR ---
DC PLANNING Spoke w pt & dtr Chetna @ bedside, would like [facility] if not then 2nd choice for [facility](pt has been to [facility] in past). Called & spoke w Dr Ch earlier today, states plan for [facility] vs [facility] per pt/dtr.
--- NOTE | 2019-05-30 16:48 | NUR ---
WOUND EVALUATION: Wound Consult received from Dr. Ch. Thank you, Dr. Ch, for the consult. Patient received in a [place] Bed with a mattress, awake, alert, and oriented. Patient is unable to turn independently. Chaka Score is a . Past Medical History: Hypertension, Osteoporosis, Degenerative Joint Disease, Chronic Anemia, bilateral hip replacement, bilateral knee replacement. Recent Labs: WBC 5.8, RBC 2.59, hemoglobin 9.2, hematocrit 28.1, BUN 26, creatinine 1.00, calcium 7.2, iron 27, TIBC 231, serum total protein 6.2 albumin 3.5. No microbiology reports. Intrinsic factors that delay wound healing: Chronic Anemia. Extrinsic factors that delay wound healing: Decreased mobility. Wound Assessment: 1. Left Coccygeal Area: Pressure ulcer of prior unknown stage, present on admission. Wound bed has 100% yellow slough. No odor, no drainage. Periwound appears to have 100% undermining, which is not measurable secondary to small wound size. Surrounding tissue has blanchable red erythema and scar tissue. Wound measures 0.5 cm x 0.5 cm. Recommend: Cleanse wound with normal saline. Apply moisture barrier cream to molly-wound. Apply Venelex ointment to wound bed. Cover with 4x4 foam dressing. Perform wound care daily, and as needed for dressing soiling or dislodgement. Offload site at all times. 2. Left Medial 2nd Toe, Distal Phalanx: Unstageable pressure ulcer, present on admission. Wound bed has 100% yellow tissue. No odor, no drainage. Periwound intact, except for small area of 90% white eschar, 10% black eschar present around 5 o'clock. Measures 0.7 cm x 1.2 cm. Recommend: Cleanse wound with normal saline. Apply moisture barrier cream to molly-wound. Apply Venelex ointment to wound bed. Cover with 4x4 foam dressing. Wrap with priyank wrap. Perform wound care daily, and as needed for dressing soiling or dislodgement. Offload site at all times. 3. Left Distal Larson: Chronic wound, present on admission. Patient's daughter said that this was an area that burst open when touched by home health nurse (due to excessive edema present in leg). Wound bed has 95% yellow scab, 5% pink scar tissue. No odor, no drainage. Periwound intact. Dry, stable. Wound measures 1.3 cm x 1.1 cm. Recommend: [place] wound with Betadine. Allow to air dry. Cover with foam dressing. Perform site care daily, and as needed for dressing soiling or dislodgment. 4. Right Breast Fold: Intertriginous dermatitis with erythema and non-intact skin, present on admission. No odor, no drainage. Recommend: Involved areas with mild soap and water. Pat dry. Apply antifungal powder to involved areas. Dust excess powder off. Insert inter-dry AG cloth. Perform site care twice a day. Change inter-dry AG cloth every 5 days, and as needed for soiling. Also recommend: Encourage and assist patient with repositioning side to side only every 2 hours with pillow support and off-load pressure areas with pillows for pressure re-distribution. Offload, elevate and float bilateral heels with one pillow lengthwise under each extremity at all times. Perform skin care and monitor skin integrity Q shift. Use moisture barrier cream on buttocks and other moisture susceptible areas QID and as needed for soiling. Place patient on a low air-loss mattress. Dr. Mix saw patient for surgical consult, but did not recommend surgery secondary to wounds were very small in size.
[2019-05-30] MEDS ORDERED: BALSAM PERU/CASTOR OIL 60 GM OINT...G. TP ONE (17:15)
--- NOTE | 2019-05-30 17:38 | NUR ---
Organ Builder: Assist CM with Discharge planning. RESPITE CARE PROVIDER faxd over a packet to [facility]. Rn Anabell Gross received packet and came over to met with pt. During her visit. Surgeon and daughter were also present. As per Anabell, , Surgeon stated pt. does not need surgery. [facility] accept pt[facility] bed 1209 bed A as early as tonight. This is their last female bed for the time being. RESPITE CARE PROVIDER prepared [facility] packet including a xray disc. RESPITE CARE PROVIDER spoke to Dr. Ch to stated [facility] is accpeting [facility]. He stated he will meet with pt. and then look at a DC order. During documentation , raw material planner stated is going to D/C tomorrow. RESPITE CARE PROVIDER left a msg. for Anabell with this info and stated that [facility] was still wanting this bed. RESPITE CARE PROVIDER will assist tomorrow with this D/C Addendum: 05/30/19 at 0892 by Anyi Bynum RESPITE CARE PROVIDER Organ Builder follow up RESPITE CARE PROVIDER wanted to included in notes the pts. bed at [facility] is 1209 Bed A. Rn is to call for report at [phone]
--- NOTE | 2019-05-30 18:30 | NUR ---
closing notes seen by dr gonsalez and stated not requiring any sx. wound assessment done with sky at bedside. dr branch came back and stated to send patient tonight at [facility] since there is just 1 bed available. family at bedside. ivl intact on the l forearm and will go with patient once d/c.
--- NOTE | 2019-05-30 19:15 | NUR ---
OPENING NOTE Bedside report received from dayshift nurse. Patient received lying in bed, AOX4, no s/s of acute distress noted. Breathing even and unlabored. Patient denies pain or discomfort at this time. IV site is patent, no signs of infiltration or infection noted. Call light with patient. Bed alarm on. Bed is locked and at lowest position. Will continue to monitor.
--- NOTE | 2019-05-30 21:13 | NUR ---
TRANSPORT CALLED [facility] SPOKE WITH ETHEL. [facility]CH[facility]ECT IS FOR [phone] [facility]
--- NOTE | 2019-05-30 22:21 | NUR ---
COMMUNICATION WITH [facility] SPOKE TO CHARGE NURSE KYLAH, COMMUNICATED THAT DR. POE HAS APPROVED FOR DISCHARGE TO BE POSTPONED UNTIL THE MORNING PER FAMILY'S REQUEST. KYLAH VERBALIZED BACK FOR CONFIRMATION FOR UNDERSTANDING, HE VERBALIZED HE WILL HOLD THE PATIENT'S BED (1209A) FOR HER ARRIVAL IN THE MORNING.
--- NOTE | 2019-05-30 22:30 | NUR ---
COMMUNICATION WITH PATIENT'S FAMILY PATIENT'S DAUGHTER OLIVER CALLED REQUESTING FOR PATIENT'S DISCHARGE TO BE HELD UNTIL TOMORROW MORNING. DR. POE PAGED BACK, HE HAS APPROVED THE REQUEST. DAUGHTER OLIVER HAS BEEN MADE AWARE AND UPDATED. PATIENT ALSO MADE AWARE AND VERBALIZES UNDERSTANDING.
[2019-05-30] MEDS: ENOXAPARIN SODIUM 40 MG/0.4 ML SYRINGE SUBCUT SCH (22:55)
[2019-05-30] MEDS: NYSTATIN 15 GM TOPICAL POWDER TP SCH (22:55)
--- NOTE | 2019-05-31 01:00 | NUR ---
ROUNDS Patient asleep, no signs of discomfort noted. Chest rise and fall even bilaterally. Call light with patient. Will continue to monitor.
--- NOTE | 2019-05-31 03:00 | NUR ---
ROUNDS Patient sleeping comfortably, no s/s of acute distress noted. Breathing even and unlabored. Call light with patient. Will continue to monitor.
--- NOTE | 2019-05-31 05:20 | NUR ---
TRANSPORT CALLED [facility] SET UP ANALYSIS MGR FOR 1030 GOING TO [facility]. RN AWARE
--- NOTE | 2019-05-31 05:30 | NUR ---
WOUNDCARE/PICTURES Wound care done, followed wound care orders, pictures taken at this time. Patient tolerated well. All needs met at this time. Call light with patient. Will continue to monitor.
[2019-05-31] MEDS: LEVOTHYROXINE SODIUM 0.15 MG TABLET PO SCH (06:16)
--- NOTE | 2019-05-31 06:26 | NUR ---
CLOSING NOTES Patient in bed, resting. No s/s of acute distress noted. Breathing even and unlabored. IV site patent, no signs of infiltration or infection noted. Skin warm and dry to touch. All needs met throughout shift. Fall and safety precautions maintained throughout shift. Will continue to monitor until patient care is endorsed to oncoming dayshift nurse.
[2019-05-31 08:20] VITALS: BP_SYST 144
[2019-05-31] MEDS ORDERED: BALSAM PERU/CASTOR OIL 60 GM OINT...G. TP SCH (09:00)
--- NOTE | 2019-05-31 09:15 | NUR ---
DCP follow up: PRINCIPAL SYSTEM SOFTWARE ENGINEER contacted [facility] [phone] is accepted to this facility, requesting verbal report from RN. Pt. has a bed available Room 1209- A , Patient and family for transfer to this facility.PRINCIPAL SYSTEM SOFTWARE ENGINEER verified that transportation was arranged for [facility] at 1030 AM . Provided JILL Cosby with Chart.
[2019-05-31 09:34] VITALS: BP_SYST 144
[2019-05-31] MEDS: CARVEDILOL 3.125 MG TABLET (COREG) PO SCH (09:37)
[2019-05-31] MEDS: FUROSEMIDE 20 MG TABLET PO SCH (09:37)
[2019-05-31] MEDS: ASCORBIC ACID 500 MG TABLET PO SCH (09:38)
[2019-05-31] MEDS: PREDNISONE 5 MG TABLET PO SCH (09:38)
[2019-05-31] MEDS: FOLIC ACID 1 MG TABLET PO SCH (09:39)
[2019-05-31] MEDS: CALCIUM CARBONATE/VITAMIN D3 1 TAB TABLET PO SCH (09:39)
[2019-05-31] MEDS: SERTRALINE HCL 50 MG TABLET PO SCH (09:39)
[2019-05-31] MEDS: PANTOPRAZOLE SODIUM 40 MG TAB PO SCH (09:39)
[2019-05-31] MEDS: OMEGA-3/DHA/EPA/FISH OIL 1 GM CAPSULE PO SCH (09:40)
[2019-05-31] MEDS: ACETAMINOPHEN 325 MG TABLET PO PRN (09:51)
[2019-05-31] MEDS: NYSTATIN 15 GM TOPICAL POWDER TP SCH (09:52)
--- NOTE | 2019-05-31 09:56 | NUR ---
REPORT: Report given to JILL San [phone]
[2019-05-31] MEDS: HYDROXYCHLOROQUINE SULFATE 200 MG TABLET PO SCH (10:20)
[2019-05-31] MEDS ORDERED: SOD FERRIC GLUC COMPLEX/SUC 125 MG in NS 100 ML IV SCH (11:00)
--- NOTE | 2019-05-31 11:10 | NUR ---
Discharge Discharged with [facility]. Patient's daughter Chetna present. All belongings returned.
[2019-06-02 13:06] LABS: VIT D,1, 25-DIHYDROXY 78.5 pg/mL (19.9-79.3)
== END 2019-05-31 11:10 | DRG 542 ==
LOC: SED 10:44 → SMU 13:45
PROVIDERS: ADMIT Family Medicine; ATTEND Family Medicine
DX: M80.852A Other osteoporosis with current pathological fracture, left femur, initial encounter for fracture (principal); L89.154 Pressure ulcer of sacral region, stage 4; M80.851A Other osteoporosis with current pathological fracture, right femur, initial encounter for fracture; M19.90 Unspecified osteoarthritis, unspecified site; M81.0 Age-related osteoporosis without current pathological fracture; I10 Essential (primary) hypertension; E03.9 Hypothyroidism, unspecified; D50.9 Iron deficiency anemia, unspecified; M06.9 Rheumatoid arthritis, unspecified; L97.529 Non-pressure chronic ulcer of other part of left foot with unspecified severity; Z96.653 Presence of artificial knee joint, bilateral; Z96.643 Presence of artificial hip joint, bilateral; Z88.5 Allergy status to narcotic agent; Z91.09 Other allergy status, other than to drugs and biological substances; Z79.899 Other long term (current) drug therapy; Z79.52 Long term (current) use of systemic steroids
CPT/HCPCS: 36415; 71045; 72170-TC; 72192-TC; 73502; 80048; 80053; 82306; 82550-TC; 82607; 82746; 83540-TC; 83550-TC; 85025; 93005; 94640; 94760; 99285; J1650; J2916; J7512; J8610

== ENCOUNTER 2019-11-25 16:41 | Emergency (ER) | payer OTHER, MEDICARE ==
[~2019-11-25] VITALS: Ht 149.9 cm; Wt 65.8 kg
[~2019-11-25 16:41] MED LIST changes: -ASA81 PO; -BISA-79 PO; +FURO-150 PO; -IRON-11 PO; +OMEP40CA33 PO; +SERT25TA PO; -TERI2.4P SQ; -VALS1TAB2 PO
[2019-11-25 16:59] VITALS: BP_SYST 120
--- NOTE | 2019-11-25 17:03 | NUR ---
Patient triaged and placed in hallway . VSS and patient appears in no acute distress at this time. Accompanied by BLS , awaiting available bed, and MD notified of need for MSE.
--- NOTE | 2019-11-25 17:05 | NUR ---
Pt brought by Manny RIVERA&OX4, pt presents to ER with L elbow pain after she fell from a chair, no KO, skin pink and warm, cap refill <3, VSS, respirations even and unlabored, pt states she ambulates with a walker, no other complains, will cont to monitor.
--- NOTE | 2019-11-25 17:10 | NUR ---
Dr Lind evaluating patient in [facility].
--- NOTE | 2019-11-25 17:30 | NUR ---
PROVIDED WITH AN ICEPACK FOR ELBOW PAIN
--- NOTE | 2019-11-25 17:40 | NUR ---
PT PRESENTS TO ER AFTER FALLING TODAY FROM A CHAIR ONTO HER RIGHT ELBOW 8/10 PAIN. SHE REPORTS A HX OF OSTERPOROSIS, RA AND DEGENERATIVE DISK DISEASE. AAOx3, V/S STABLE.
--- NOTE | 2019-11-25 17:48 | NUR ---
XRAY WITH PT IN ROOM
--- NOTE | 2019-11-25 18:15 | NUR ---
PROVIDED WITH BEDPAN TO VOID
--- NOTE | 2019-11-25 18:48 | NUR ---
long arm splint applied to left arm. + pulse noted. Capillary refill <3 seconds. Patient has ability to move non-splinted digits. Has sensation present to affected site. Skin color within normal limits. Applied for pain management control.
--- NOTE | 2019-11-25 18:51 | NUR ---
Patient given written and verbal discharge instructions and verbalizes understanding. ER MD discussed with patient the results and treatment provided. Patient in stable condition. ID arm band removed. Patient educated on pain management and to follow up with PMD. Pain Scale 2/10. Opportunity for questions provided and answered. Medication side effect fact sheet provided.
[2019-11-25 18:52] VITALS: BP_SYST 120
== END 2019-11-25 18:52 | disposition home or self-care (01) ==
LOC: SED 16:41
DX: S42.402A Unspecified fracture of lower end of left humerus, initial encounter for closed fracture (principal); I10 Essential (primary) hypertension; Z86.2 Personal history of diseases of the blood and blood-forming organs and certain disorders involving the immune mechanism; Z90.49 Acquired absence of other specified parts of digestive tract; Z90.710 Acquired absence of both cervix and uterus; Z86.73 Personal history of transient ischemic attack (TIA), and cerebral infarction without residual deficits; Z79.899 Other long term (current) drug therapy; Z88.5 Allergy status to narcotic agent; W06.XXXA Fall from bed, initial encounter; Y93.89 Activity, other specified; Y92.89 Other specified places as the place of occurrence of the external cause; Y99.8 Other external cause status
CPT/HCPCS: 73030; 99284